=== PATIENT | female | born 2005 | race Caucasian/White ===

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

== ENCOUNTER 2023-03-04 00:19 | Emergency (ER) | payer OTHER, SELFPAY ==
--- NOTE | 2023-03-04 | ECG_ITS ---
Test Reason : CP Blood Pressure : / mmHG Vent. Rate : 089 BPM Atrial Rate : 089 BPM P-R Int : 126 ms QRS Dur : 076 ms QT Int : 340 ms P-R-T Axes : 070 069 025 degrees QTc Int : 413 ms Normal sinus rhythm with sinus arrhythmia Normal ECG No previous ECGs available Referred By: Generic ED Physician Electronically Signed By:SUGAR CARO MD
[2023-03-04 00:33] VITALS: BP 115/73; PULSE 106; RESP 18; TEMP 37.1; O2SAT 96; BMI 24.8
[2023-03-04 00:39] LABS: MANUAL DIFF FLAG NO
[2023-03-04 00:41] LABS: Basophils Percent Auto 0.4 % (0-2); Eosinophils Absolute Auto 0.5 X10*3/uL (0.0-0.4); Eosinophils Percent Auto 5.8 % (0-4); Hematocrit 38.4 % (37.0-47.0); Hemoglobin 13.2 g/dl (12.0-16.0); Imm Gran Abs Auto 0.02 X10*3/uL (0.00-0.03); Imm Gran Pct Auto 0.2 % (0.0-0.4); Lymphocytes Percent Auto 36.3 % (20-40); Mean Corpuscular HGB Conc 34.4 g/dl (31.0-35.0); Mean Corpuscular Volume 87.3 fL (80.0-98.0); Mean Platelet Volume 9.3 fL (9.4-12.3); Monocytes Absolute Auto 0.6 X10*3/uL (0.1-1.2); Monocytes Percent Auto 7.7 % (2-11); Neutrophils Absolute Auto 4.1 x10*3/uL (2.0-8.3); Neutrophils Percent Auto 49.6 % (45-73); Platelet Count 299 X10*3/uL (160-400); Red Cell Distribution Width 12.1 % (11.0-16.0); White Blood Count 8.3 X10*3/uL (4.8-10.8)
--- NOTE | 2023-03-04 00:52 | ED_ITS ---
HPI - Chest Pain General Chief Complaint: Chest Pain Stated Complaint: Chest Pain Time Seen by Provider: 03/04/23 00:51 Source: patient Mode of arrival: ambulatory Limitations: no limitations History of Present Illness HPI narrative: Patient no significant cardiac history in the past complaining of pain mid chest for last 1 week no palpitation no shortness of breath patient has similar pain few months ago no family history of sudden cardiac no history of blood no history of control pills no shortness of breath no diaphoresis no nausea no vomiting no trauma no cough Related Data Home Medications Medication Instructions Recorded Confirmed loratadine 10 mg tablet 10 mg PO DAILY 10/28/21 06/12/22 clindamycin phosphate 1 % topical topical 12/21/21 06/12/22 solution tretinoin 0.025 % topical cream appl topical BEDTIME 12/21/21 06/12/22 Previous Rx's Medication Instructions Recorded linaclotide 290 mcg capsule 290 mcg PO QAM 30 days #30 caps 09/16/21 (Linzess) acetaminophen 500 mg tablet 1,000 mg (2 x 500 mg) PO Q6H PRN 06/10/22 (Tylenol Extra Strength) pain 14 days #120 tabs ibuprofen 400 mg tablet 400 mg PO Q6H PRN pain #60 tabs 06/10/22 ibuprofen 600 mg tablet 600 mg PO Q6H PRN fever or pain 03/04/23 #30 tabs Allergies Allergy/AdvReac Type Severity Reaction Status Date / Time No Known Allergies Allergy Verified 06/12/22 13:29 Review of Systems 2 Review of Systems: Yes all other systems are reviewed and are negative PMFSH Past Medical History Medical History Hip pain, bilateral Chronic pain syndrome Osteoarthritis of knees, bilateral Ear infection Surgical History No pertinent past surgical history Family History Family History Father Fibromyalgia Cancer Nerve damage Depression Anxiety Social History Social History Housing: Apartment Alcohol intake: never Patient Tobacco Use Status: Never used Tobacco Smoked in Last 30 Days: No e-Cigarette/Vaping Use: Never Used Second Hand Smoke Exposure: Yes Use of substances other than those prescribed or required for medical reasons: No Advance Directives: No Advance Directives Information Provided: No Patient : No service: No Current occupational status: employed and student 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 Oriented X3. No acute distress. ENT: Pharynx normal. Oral Mucosa moist Neck: Normal inspection. Neck supple. CVS: Normal heart rate and rhythm. Pulses normal. Respiratory: No respiratory distress. Equal air entry bilateral, no wheezing/rales/rhonchi left 2nd intercostal pes tenderness Abdomen: Soft and nontender. Bowel sounds are present, Skin: Skin warm and dry. Normal skin color. Normal skin turgor. Extremities: No lower extremity edema. No calf tenderness Neuro: Oriented X 3. Medications Administered Discontinued Medications Generic Name Dose Route Start Last Admin Trade Name Johanna PRN Reason Stop Dose Admin Ibuprofen 600 mg 03/04/23 01:13 03/04/23 01:28 Ibuprofen 600 Mg Tablet PO 03/04/23 01:14 600 mg ONCE ONE Administration Medical Decision Making Medical Decision Making [facility] Narrative: . Patient with Atypical chest pain likely costochondritis patient patient home on ibuprofen heart score 0 Differential Diagnosis Differential Diagnoses: The differential diagnosis associated with the presentation includes Chest wall pain/PE/costochondritis/ACs Lab Data [facility] Lab Attestation statement: I reviewed the patient's lab results. 03/04/23 00:35 03/04/23 00:35 Labs: Lab Results 03/04/23 Range/Units 00:35 WBC 8.3 (4.8-10.8) X10*3/uL RBC 4.40 (4.20-5.50) X10*6/uL Hgb 13.2 (12.0-16.0) g/dl Hct 38.4 (37.0-47.0) % MCV 87.3 (80.0-98.0) fL MCH 30.0 (27.0-33.0) pg MCHC 34.4 (31.0-35.0) g/dl RDW 12.1 (11.0-16.0) % Plt Count 299 (160-400) X10*3/uL MPV 9.3 L (9.4-12.3) fL Immature Gran % (Auto) 0.2 (0.0-0.4) % Neut % (Auto) 49.6 (45-73) % Lymph % (Auto) 36.3 (20-40) % Merrick % (Auto) 7.7 (2-11) % Eos % (Auto) 5.8 H (0-4) % Baso % (Auto) 0.4 (0-2) % Lymph # (Auto) 3.0 (1.2-4.9) X10*3/uL Merrick # (Auto) 0.6 (0.1-1.2) X10*3/uL Eos # (Auto) 0.5 H (0.0-0.4) X10*3/uL Baso # (Auto) 0.0 (0.0-0.2) X10*3/uL Abs Immat Gran (auto) 0.02 (0.00-0.03) X10*3/uL Absolute Neuts (auto) 4.1 (2.0-8.3) x10*3/uL Absolute Nucleated RBC 0.000 (0.0-0.012) X10*3/uL Nucleated RBC % (auto) 0.0 (0.0-0.2) /100WBC Sodium 139 (135-145) mmol/L Potassium 3.4 (3.3-5.1) mmol/L Chloride 109 H (96-108) mmol/L Carbon Dioxide 22 (22-29) mmol/L Anion Gap 11 L (12-20) BUN 7 L (9-16) mg/dL Creatinine 0.79 (0.5-1.4) mg/dL Estim Creat Clear Calc 111.4 Estimated GFR > 60 Random Glucose 124 H (60-115) mg/dL Calcium 9.4 (8.4-10.2) mg/dL Total Bilirubin 0.3 (0.0-1.0) mg/dL Direct Bilirubin 0.1 (0.0-0.5) mg/dL AST 19 (5-31) U/L ALT 19 (0-31) U/L Alkaline Phosphatase 87 (39-117) U/L Troponin I High Sens < 2.7 (<3.5-17.0) ng/L Total Protein 7.5 (6.5-8.0) g/dL Albumin 4.3 (3.5-5.0) g/dL Lipase 22 (8-78) U/L Independent Interpretation I performed an independent interpretation of an: EKG Interpretation: Normal sinus rhythm heart rate 89 beats per minute normal interval normal axis no acute ST-T no acute ischemic Discharge Plan Discharge Clinical Impression: Costalchondritis Patient Disposition: Home, Self-Care Instructions: Costochondritis (ED) Additional Instructions: your chest pain is not from the heart is likely from inflammation the cartilage Take pain medications prescribed Prescriptions: New ibuprofen 600 mg tablet 600 mg PO Q6H PRN (Reason: fever or pain) Qty: 30 0RF No Action acetaminophen [Tylenol Extra Strength] 500 mg tablet 1,000 mg PO Q6H PRN (Reason: pain) 14 Days Qty: 120 0RF ibuprofen 400 mg tablet 400 mg PO Q6H PRN (Reason: pain) Qty: 60 0RF Linzess 290 mcg capsule 290 mcg PO QAM 30 Days Qty: 30 6RF loratadine 10 mg tablet 10 mg PO DAILY clindamycin phosphate 1 % solution topical tretinoin 0.025 % cream topical BEDTIME Stand Alone Forms: Work/School Release Interventions: ED Discharge Assessment Last Done: 03/04/23 01:32 Discharge Date/Time: 03/04/23 01:33
[2023-03-04 00:54] LABS: Alanine Aminotransferase 19 U/L (0-31); Albumin Level 4.3 g/dL (3.5-5.0); Alkaline Phosphatase 87 U/L (39-117); Anion Gap 11 (12-20); Aspartate Amino Transferase 19 U/L (5-31); Bilirubin Direct 0.1 mg/dL (0.0-0.5); Bilirubin Total 0.3 mg/dL (0.0-1.0); Blood Urea Nitrogen 7 mg/dL (9-16); Calcium 9.4 mg/dL (8.4-10.2); Carbon Dioxide 22 mmol/L (22-29); Chloride 109 mmol/L (96-108); Creatinine Clr Calc Pharmacy 111.4; Estimated Glomerular Filt Rate > 60; Glucose Random 124 mg/dL (60-115); Lipase 22 U/L (8-78); Potassium 3.4 mmol/L (3.3-5.1); Sodium 139 mmol/L (135-145); Total Protein 7.5 g/dL (6.5-8.0)
[2023-03-04 01:05] LABS: Troponin-I High Sensitivity < 2.7 ng/L (<3.5-17.0)
--- NOTE | 2023-03-04 01:17 | PC.NURSE ---
Pt ambulated into room with a steady gait, Pt reporting 5/10 sub-sternal chest pain, when lifting left arm pt experienced sharp pain which has resolved as of now. Pt reports resolved SOB. Pt denies lfting anything heavy, or any physical exertion. Pt denies an family medical history. Pt aware of plan.
[2023-03-04 01:26] VITALS: BP 116/75; PULSE 93; RESP 20; O2SAT 99
[2023-03-04] MEDS: Ibuprofen 600 MG TABLET PO (01:28)
== END 2023-03-04 01:33 | disposition home or self-care (01) ==
PROVIDERS: Emergency Provider Internal Medicine; PCP Internal Medicine
DX: R07.89 Other chest pain (principal); M94.0 Chondrocostal junction syndrome [Tietze]; Z79.899 Other long term (current) drug therapy
CPT/HCPCS: 36415; 80048; 80076; 83690; 84484; 85025; 93005; 99284; 99285

== ENCOUNTER 2023-03-29 22:45 | Emergency (ER) | payer OTHER, SELFPAY ==
[2023-03-29 23:05] VITALS: BP 117/84; PULSE 94; RESP 16; TEMP 36.6; O2SAT 100; BMI 33.7
[2023-03-29 23:39] LABS: UPreg QC Valid YES; Urine Pregnancy NEGATIVE (NEGATIVE)
--- NOTE | 2023-03-30 00:19 | MHC.EDTECH ---
Patient blood drawn and sent to lab .
[2023-03-30 00:23] LABS: Basophils Percent Auto 0.4 % (0-2); Eosinophils Absolute Auto 0.3 X10*3/uL (0.0-0.4); Eosinophils Percent Auto 3.5 % (0-4); Hematocrit 37.7 % (37.0-47.0); Hemoglobin 12.8 g/dl (12.0-16.0); Imm Gran Abs Auto 0.02 X10*3/uL (0.00-0.03); Imm Gran Pct Auto 0.2 % (0.0-0.4); Lymphocytes Absolute Auto 3.2 X10*3/uL (1.2-4.9); Lymphocytes Percent Auto 37.5 % (20-40); MANUAL DIFF FLAG NO; Mean Corpuscular Hemoglobin 29.8 pg (27.0-33.0); Mean Corpuscular Volume 87.9 fL (80.0-98.0); Mean Platelet Volume 9.8 fL (9.4-12.3); Monocytes Absolute Auto 0.6 X10*3/uL (0.1-1.2); Monocytes Percent Auto 6.8 % (2-11); Neutrophils Absolute Auto 4.4 x10*3/uL (2.0-8.3); Neutrophils Percent Auto 51.6 % (45-73); Platelet Count 298 X10*3/uL (160-400); Red Blood Count 4.29 X10*6/uL (4.20-5.50); Red Cell Distribution Width 11.9 % (11.0-16.0); White Blood Count 8.5 X10*3/uL (4.8-10.8)
[2023-03-30 00:26] LABS: Appearance Urine Clear; Color Urine Yellow; Glucose Urine UA Negative (Negative); Leukocyte Esterase Urine Negative (Negative); Nitrite Urine Negative (Negative); UMIC TRIGGER UACC YES; Urine Blood Trace (Negative); Urine Ketones Negative (Negative); Urine Protein Negative (Neg-Trace)
[2023-03-30 00:28] LABS: Bacteria Urine None Seen (None Seen); Hyaline Casts Urine 0-2 /LPF (0-2); Squamous Epithelial Cell Urine 0-2 /HPF (0-2); WBC Urine 0-5 /HPF (0-5)
[2023-03-30 00:37] LABS: Anion Gap 12 (12-20); Blood Urea Nitrogen 14 mg/dL (9-16); Calcium 9.4 mg/dL (8.4-10.2); Carbon Dioxide 25 mmol/L (22-29); Chloride 108 mmol/L (96-108); Creatinine Clr Calc Pharmacy 100.6; Estimated Glomerular Filt Rate > 60; Glucose Random 97 mg/dL (60-115); Potassium 4.9 mmol/L (3.3-5.1); Sodium 140 mmol/L (135-145)
--- NOTE | 2023-03-30 00:40 | ED.FEMALEGU ---
HPI - Female Genitourinary General Chief complaint: Vaginal Bleeding Stated complaint: personal Time Seen by Provider: 03/29/23 23:40 Source: patient Mode of arrival: ambulatory Limitations: no limitations History of Present Illness HPI Narrative: Patient is a 18-year-old female who presents emergency department for evaluation of vaginal bleeding. She reports onset of vaginal bleeding 03/09/2023-until 03/23/2023. Typically her menstrual cycle last 5 days. She states that in February she missed her menstrual cycle, prior to that she had a normal cycle in January. She denies possibility of , reporting abstinence from November, to mid February which is when she should have had her menstrual cycle. For the past 6 days she did not have any bleeding. Tonight she noticed a small quarter-sized amount of dark red blood on her urine which prompted her a concern when she came to the emergency department. She denies fevers, chills, abdominal pain, rectal bleeding, blood in her urine, pelvic pain, pain with intercourse, concern for sexually transmitted infections. Related Data Home Medications Medication Instructions Recorded Confirmed loratadine 10 mg tablet 10 mg PO DAILY 10/28/21 06/12/22 clindamycin phosphate 1 % topical topical 12/21/21 06/12/22 solution tretinoin 0.025 % topical cream appl topical BEDTIME 12/21/21 06/12/22 Previous Rx's Medication Instructions Recorded linaclotide 290 mcg capsule 290 mcg PO QAM 30 days #30 caps 09/16/21 (Linzess) acetaminophen 500 mg tablet 1,000 mg (2 x 500 mg) PO Q6H PRN 06/10/22 (Tylenol Extra Strength) pain 14 days #120 tabs ibuprofen 400 mg tablet 400 mg PO Q6H PRN pain #60 tabs 06/10/22 ibuprofen 600 mg tablet 600 mg PO Q6H PRN fever or pain 03/04/23 #30 tabs Allergies Allergy/AdvReac Type Severity Reaction Status Date / Time No Known Allergies Allergy Verified 06/12/22 13:29 Review of Systems Review of Systems: Yes all other systems are reviewed and are negative [facility] Past Medical History Attestation statement: The following information was validated with the patient. 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 No acute distress.?Normal affect. Eyes: Pupils equal, round and reactive to light.? ENT: Pharynx normal.?? Neck: Normal inspection.? Neck supple.?? CVS: Heart sounds normal. Normal heart rate and rhythm.? Pulses normal.?? Respiratory: No respiratory distress.? Lung sounds clear to auscultation bilaterally?? Abdomen: Soft and non-tender. Normoactive bowel sounds. No CVA tenderness Skin: Skin warm and dry.? Normal skin color.?? Extremities: No lower extremity edema.? Neuro: Moves all extremities spontaneously. Sensation intact bilaterally. Ambulates with normal steady gait. Medical Decision Making Medical Decision Making MDM Narrative: Patient is a 18-year-old female who presents emergency department for evaluation of vaginal bleeding as per HPI. She has not experienced bleeding for the past 6 days aside from a small quarter-sized amount today noted on her undergarments. Abdominal examination is benign. She was offered to have internal pelvic examination she however declines. She denies concern for sexually transmitted infections and declines testing for such. Reviewed labs obtained, CBC is without leukocytosis or anemia, no thrombocytopenia. Electrolytes are normal, no ADDIE. Urinalysis revealing trace evidence of blood, consistent vaginal bleeding, no evidence of urinary tract infection. testing is negative. At this time she is stable for discharge, discussed outpatient follow-up with photogrammetric technician regarding irregular menstrual bleeding, worrisome signs and symptoms that would warrant re-evaluation emergency department. All questions answered. Stable for discharge. Differential Diagnosis Differential Diagnoses: The differential diagnosis associated with the presentation includes (As noted above) Lab Data MDM Lab Attestation statement: I reviewed the patient's lab results. (As noted above) 03/30/23 00:18 03/30/23 00:18 Labs: Lab Results 03/29/23 03/30/23 Range/Units 23: 00:18 WBC 8.5 (4.8-10.8) X10*3/uL RBC 4.29 (4.20-5.50) X10*6/uL Hgb 12.8 (12.0-16.0) g/dl Hct 37.7 (37.0-47.0) % MCV 87.9 (80.0-98.0) fL MCH 29.8 (27.0-33.0) pg MCHC 34.0 (31.0-35.0) g/dl RDW 11.9 (11.0-16.0) % Plt Count 298 (160-400) X10*3/uL MPV 9.8 (9.4-12.3) fL Immature Gran % (Auto) 0.2 (0.0-0.4) % Neut % (Auto) 51.6 (45-73) % Lymph % (Auto) 37.5 (20-40) % [place] % (Auto) 6.8 (2-11) % Eos % (Auto) 3.5 (0-4) % Baso % (Auto) 0.4 (0-2) % Lymph # (Auto) 3.2 (1.2-4.9) X10*3/uL [place] # (Auto) 0.6 (0.1-1.2) X10*3/uL Eos # (Auto) 0.3 (0.0-0.4) X10*3/uL Baso # (Auto) 0.0 (0.0-0.2) X10*3/uL Abs Immat Gran (auto) 0.02 (0.00-0.03) X10*3/uL Absolute Neuts (auto) 4.4 (2.0-8.3) x10*3/uL Absolute Nucleated RBC 0.000 (0.0-0.012) X10*3/uL Nucleated RBC % (auto) 0.0 (0.0-0.2) /100WBC Sodium 140 (135-145) mmol/L Potassium 4.9 D (3.3-5.1) mmol/L Chloride 108 (96-108) mmol/L Carbon Dioxide 25 (22-29) mmol/L Anion Gap 12 (12-20) BUN 14 (9-16) mg/dL Creatinine 1.07 (0.5-1.4) mg/dL Estim Creat Clear Calc 100.6 Estimated GFR > 60 Random Glucose 97 (60-115) mg/dL Calcium 9.4 (8.4-10.2) mg/dL Urine Color Yellow Urine Appearance Clear Urine pH 7.0 (5.0-9.0) Ur Specific [place] 1.020 (1.005-1.025) Urine Protein Negative (Neg-Trace) mg/dL Urine Glucose (UA) Negative (Negative) mg/dL Urine Ketones Negative (Negative) mg/dL Urine Blood Trace H (Negative) Urine Nitrite Negative (Negative) Ur Leukocyte Esterase Negative (Negative) Urine RBC 3-5 H (0-2) /HPF Urine WBC 0-5 (0-5) /HPF Ur Squamous Epith Cells 0-2 (0-2) /HPF Urine Bacteria None Seen (None Seen) Hyaline Casts 0-2 (0-2) /LPF Urine Test NEGATIVE (NEGATIVE) Independent Historian Clinical information obtained from an independent historian. History obtained from or confirmed by: Other (Boyfriend present at bedside who confirms history) External Record Review External record reviewed: Outpatient record Discharge Plan Discharge Clinical Impression: Irregular uterine bleeding Patient Disposition: Home, Self-Care Instructions: Dysfunctional Uterine Bleeding (ED) Additional Instructions: As discussed, please contact the photogrammetric technician office to arrange for a follow-up visit. Her blood counts today were normal. As discussed, please keep a diary of your menstrual cycle/bleeding, keeping track of the days that it occurs, in addition to the number of pads to using daily and how saturated they are. You may return back to emergency department any new or worsening symptoms or concerns. Prescriptions: No Action acetaminophen [Tylenol Extra Strength] 500 mg tablet 1,000 mg PO Q6H PRN (Reason: pain) 14 Days Qty: 120 0RF ibuprofen 400 mg tablet 400 mg PO Q6H PRN (Reason: pain) Qty: 60 0RF ibuprofen 600 mg tablet 600 mg PO Q6H PRN (Reason: fever or pain) Qty: 30 0RF Linzess 290 mcg capsule 290 mcg PO QAM 30 Days Qty: 30 6RF loratadine 10 mg tablet 10 mg PO DAILY clindamycin phosphate 1 % solution topical tretinoin 0.025 % cream topical BEDTIME Referrals: Lea Portillo MD [Primary Care Provider] - Jayme Crook MD [Physician] -
[2023-03-30 01:23] VITALS: BP 107/69; PULSE 94; RESP 16; TEMP 36.3; O2SAT 98
== END 2023-03-30 01:25 | disposition home or self-care (01) ==
PROVIDERS: Nurse Practitioner Family; Emergency Provider Internal Medicine; PCP Internal Medicine
DX: N93.9 Abnormal uterine and vaginal bleeding, unspecified (principal)
CPT/HCPCS: 36415; 80048; 81001; 81025; 85025; 99283; 99284

== ENCOUNTER 2023-04-14 20:29 | Emergency (ER) | payer OTHER, SELFPAY ==
[2023-04-14 20:47] VITALS: BP 127/78; PULSE 74; RESP 14; TEMP 36.4; O2SAT 99; BMI 25.2
--- NOTE | 2023-04-14 22:20 | PC.NURSE ---
pt from home reporting right lower abdominal pain for 3 days. pt denies n/v/d. pt reports the pain worsens with movement but states the pain is minimal at rest. pt reports being placed on antibiotics for strep throat and reports she is unsure if this is causing the symptoms. pt abdomen soft non tender to touch and noted to have active bowel sounds in all 4 quadrants.
--- NOTE | 2023-04-14 22:22 | ED.ABDPAIN ---
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 Has not been associated with fever, chills, nausea, vomiting, patient does report burning on urination and LMP 03/30. Related Data Home Medications Medication Instructions Recorded Confirmed loratadine 10 mg tablet 10 mg PO DAILY 10/28/21 06/12/22 clindamycin phosphate 1 % topical topical 12/21/21 06/12/22 solution tretinoin 0.025 % topical cream appl topical BEDTIME 12/21/21 06/12/22 Previous Rx's Medication Instructions Recorded linaclotide 290 mcg capsule 290 mcg PO QAM 30 days #30 caps 09/16/21 (Linzess) acetaminophen 500 mg tablet 1,000 mg (2 x 500 mg) PO Q6H PRN 06/10/22 (Tylenol Extra Strength) pain 14 days #120 tabs ibuprofen 400 mg tablet 400 mg PO Q6H PRN pain #60 tabs 06/10/22 ibuprofen 600 mg tablet 600 mg PO Q6H PRN fever or pain 03/04/23 #30 tabs Allergies Allergy/AdvReac Type Severity Reaction Status Date / Time No Known Allergies Allergy Verified 06/12/22 13:29 Review of Systems Review of Systems Pertinent positives and negatives as stated in HPI PMFSH Past Medical History Source: nursing notes reviewed Medical History Hip pain, bilateral Chronic pain syndrome Osteoarthritis of knees, bilateral Ear infection Surgical History No pertinent past surgical history Family History Family History Father Fibromyalgia Cancer Nerve damage Depression Anxiety Social History Social History Housing: Apartment Alcohol intake: never Patient Tobacco Use Status: Never used Tobacco Smoked in Last 30 Days: No e-Cigarette/Vaping Use: Never Used Second Hand Smoke Exposure: Yes Use of substances other than those prescribed or required for medical reasons: No Advance Directives: No Advance Directives Information Provided: No Patient : No service: No Current occupational status: employed and student 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 GENERAL: Well developed, well nourished, in no acute distress. HEAD: Normocephalic/atraumatic EYES: PERRLA, EOMI EARS: Ext canals without abnormality NOSE: Nares patent bilateral OROPHARYNX: no oral lesions noted, posterior pharynx clear NECK: Supple, no adenopathy LUNGS: Normal breath sounds. No adventitious sounds or accessory muscle use. SpO2<99> CARDIOVASCULAR: Regular rate and rhythm without noted murmurs ABDOMEN: Soft, mild pain to right lower quadrant without rebound, non-distended with bowel sounds. MUSCULOSKELETAL: No tenderness, deformities, or effusions noted on gross inspection. EXTREMITIES: No cyanosis, clubbing or edema. SKIN: Inspection of the skin reveals no rashes NEUROLOGIC: Alert and oriented x 4. Strength and sensation to light touch were grossly intact x 4. Medical Decision Making Medical Decision Making MDM Narrative: 18-year-old female with history and clinical presentation, DDX: Musculoskeletal, UTI, low clinical suspicion for intra-abdominal infection such as appendicitis, will rule out ectopic. I reviewed all investigations and hematologic indices are negative for leukocytosis or left shift, patient is also noted to be afebrile and no clinical suspicion once again for intra-abdominal infection given that patient has been experiencing this pain for the past 3 days. Otherwise, there is no anemia or thrombocytopenia. Chemistry and disease are grossly within normal limits without demonstration of ADDIE her electrolytes/liver enzyme derangements. Urinalysis is negative for UTI and urine is negative ruling out the possibility of ectopic at this time. Due to the timing no clinical suspicion for torsion either. My interpretation is that patient is experiencing musculoskeletal pain, she was offered combination analgesics Tylenol and ibuprofen will otherwise be discharged home with instructions to follow this regimen. Differential Diagnosis Differential Diagnoses: The differential diagnosis associated with the presentation includes Please see the discussion above Admission/Observation Consideration of admission/observation: Escalation of care including admission/observation considered Please see the discussion above Lab Data MDM Lab Attestation statement: I reviewed the patient's lab results. Please see the discussion above 04/14/23 22:21 04/14/23 22:21 Labs: Lab Results 04/14/23 04/14/23 Range/Units 22:11 22:21 WBC 8.3 (4.8-10.8) X10*3/uL RBC 4.23 (4.20-5.50) X10*6/uL Hgb 12.7 (12.0-16.0) g/dl Hct 36.9 L (37.0-47.0) % MCV 87.2 (80.0-98.0) fL MCH 30.0 (27.0-33.0) pg MCHC 34.4 (31.0-35.0) g/dl RDW 11.7 (11.0-16.0) % Plt Count 275 (160-400) X10*3/uL MPV 9.2 L (9.4-12.3) fL Immature Gran % (Auto) 0.4 (0.0-0.4) % Neut % (Auto) 45.7 (45-73) % Lymph % (Auto) 42.7 H (20-40) % [place] % (Auto) 7.4 (2-11) % Eos % (Auto) 3.4 (0-4) % Baso % (Auto) 0.4 (0-2) % Lymph # (Auto) 3.5 (1.2-4.9) X10*3/uL [place] # (Auto) 0.6 (0.1-1.2) X10*3/uL Eos # (Auto) 0.3 (0.0-0.4) X10*3/uL Baso # (Auto) 0.0 (0.0-0.2) X10*3/uL Abs Immat Gran (auto) 0.03 (0.00-0.03) X10*3/uL Absolute Neuts (auto) 3.8 (2.0-8.3) x10*3/uL Absolute Nucleated RBC 0.000 (0.0-0.012) X10*3/uL Nucleated RBC % (auto) 0.0 (0.0-0.2) /100WBC Sodium 140 (135-145) mmol/L Potassium 4.4 (3.3-5.1) mmol/L Chloride 107 (96-108) mmol/L Carbon Dioxide 26 (22-29) mmol/L Anion Gap 11 L (12-20) BUN 10 (9-16) mg/dL Creatinine 0.72 (0.5-1.4) mg/dL Estim Creat Clear Calc 121.1 Estimated GFR > 60 Random Glucose 97 (60-115) mg/dL Calcium 9.2 (8.4-10.2) mg/dL Total Bilirubin 0.2 (0.0-1.0) mg/dL Direct Bilirubin < 0.2 (0.0-0.5) mg/dL AST 18 (5-31) U/L ALT 16 (0-31) U/L Alkaline Phosphatase 93 (39-117) U/L Total Protein 7.4 (6.5-8.0) g/dL Albumin 4.2 (3.5-5.0) g/dL Lipase 23 (8-78) U/L Urine Color Yellow Urine Appearance Clear Urine pH 7.0 (5.0-9.0) Ur Specific [place] 1.010 (1.005-1.025) Urine Protein Negative (Neg-Trace) mg/dL Urine Glucose (UA) Negative (Negative) mg/dL Urine Ketones Negative (Negative) mg/dL Urine Blood Negative (Negative) Urine Nitrite Negative (Negative) Ur Leukocyte Esterase Negative (Negative) Urine Test NEGATIVE (NEGATIVE) External Record Review External record reviewed: Office record, Outpatient record, Prior outpatient labs and Prior outpatient radiology Medications Administered Discontinued Medications Generic Name Dose Route Start Last Admin Trade Name Freq PRN Reason Stop Dose Admin Acetaminophen 975 mg 04/14/23 22:34 04/14/23 22:44 Acetaminophen 325 Mg Tablet PO 04/14/23 22:35 975 mg ONCE ONE Administration Ibuprofen 400 mg 04/14/23 22:34 04/14/23 22:44 Ibuprofen 400 Mg Tablet PO 04/14/23 22:35 400 mg ONCE ONE Administration Discharge Plan Discharge Clinical Impression: Abdominal discomfort, Musculoskeletal pain Patient Disposition: Home, Self-Care Instructions: Musculoskeletal Pain (ED) Additional Instructions: 1. Tylenol 1000 mg, orally, every 6 hours as needed for pain control. Do not exceed 4000 mg within 24 hours. 2. Ibuprofen 400 mg, orally with milk or food, every 6 hours as needed for pain control. 3. Recommend heating pad for additional symptom relief. As this is most likely musculoskeletal in nature. 4. Follow-up with your primary care provider in the next 1-2 days. Return to the ER for any worsening symptoms. Prescriptions: No Action acetaminophen [Tylenol Extra Strength] 500 mg tablet 1,000 mg PO Q6H PRN (Reason: pain) 14 Days Qty: 120 0RF ibuprofen 400 mg tablet 400 mg PO Q6H PRN (Reason: pain) Qty: 60 0RF ibuprofen 600 mg tablet 600 mg PO Q6H PRN (Reason: fever or pain) Qty: 30 0RF Linzess 290 mcg capsule 290 mcg PO QAM 30 Days Qty: 30 6RF loratadine 10 mg tablet 10 mg PO DAILY clindamycin phosphate 1 % solution topical tretinoin 0.025 % cream topical BEDTIME Referrals: Lea Portillo MD [Primary Care Provider] -
[2023-04-14 22:26] LABS: Appearance Urine Clear; Color Urine Yellow; Glucose Urine UA Negative (Negative); Leukocyte Esterase Urine Negative (Negative); Nitrite Urine Negative (Negative); Urine Blood Negative (Negative); Urine Ketones Negative (Negative); Urine Protein Negative (Neg-Trace)
[2023-04-14 22:28] LABS: MANUAL DIFF FLAG NO
[2023-04-14 22:29] LABS: Basophils Percent Auto 0.4 % (0-2); Eosinophils Absolute Auto 0.3 X10*3/uL (0.0-0.4); Eosinophils Percent Auto 3.4 % (0-4); Hematocrit 36.9 % (37.0-47.0); Hemoglobin 12.7 g/dl (12.0-16.0); Imm Gran Abs Auto 0.03 X10*3/uL (0.00-0.03); Imm Gran Pct Auto 0.4 % (0.0-0.4); Lymphocytes Absolute Auto 3.5 X10*3/uL (1.2-4.9); Lymphocytes Percent Auto 42.7 % (20-40); Mean Corpuscular HGB Conc 34.4 g/dl (31.0-35.0); Mean Corpuscular Volume 87.2 fL (80.0-98.0); Mean Platelet Volume 9.2 fL (9.4-12.3); Monocytes Absolute Auto 0.6 X10*3/uL (0.1-1.2); Monocytes Percent Auto 7.4 % (2-11); Neutrophils Absolute Auto 3.8 x10*3/uL (2.0-8.3); Neutrophils Percent Auto 45.7 % (45-73); Platelet Count 275 X10*3/uL (160-400); Red Blood Count 4.23 X10*6/uL (4.20-5.50); Red Cell Distribution Width 11.7 % (11.0-16.0); White Blood Count 8.3 X10*3/uL (4.8-10.8)
[2023-04-14 22:30] LABS: UPreg QC Valid YES; Urine Pregnancy NEGATIVE (NEGATIVE)
[2023-04-14 22:44] LABS: Alanine Aminotransferase 16 U/L (0-31); Albumin Level 4.2 g/dL (3.5-5.0); Alkaline Phosphatase 93 U/L (39-117); Anion Gap 11 (12-20); Aspartate Amino Transferase 18 U/L (5-31); Bilirubin Direct < 0.2 mg/dL (0.0-0.5); Bilirubin Total 0.2 mg/dL (0.0-1.0); Blood Urea Nitrogen 10 mg/dL (9-16); Calcium 9.2 mg/dL (8.4-10.2); Carbon Dioxide 26 mmol/L (22-29); Chloride 107 mmol/L (96-108); Creatinine Clr Calc Pharmacy 121.1; Estimated Glomerular Filt Rate > 60; Glucose Random 97 mg/dL (60-115); Lipase 23 U/L (8-78); Potassium 4.4 mmol/L (3.3-5.1); Sodium 140 mmol/L (135-145); Total Protein 7.4 g/dL (6.5-8.0)
[2023-04-14] MEDS: Acetaminophen 325 MG TABLET 975 MG PO (22:44)
[2023-04-14] MEDS: Ibuprofen 400 MG TABLET PO (22:44)
--- NOTE | 2023-04-14 22:45 | PC.NURSE ---
pt medicated per jul for 09/13 abd pain
[2023-04-14 23:12] VITALS: BP 118/79; PULSE 80; RESP 16; O2SAT 98
== END 2023-04-14 23:13 | disposition home or self-care (01) ==
PROVIDERS: Emergency Provider Student in an Organized Health Care Education/Training Program; PCP Internal Medicine
DX: R10.9 Unspecified abdominal pain (principal); M79.18 Myalgia, other site
CPT/HCPCS: 36415; 80048; 80076; 81003; 81025; 83690; 85025; 99283; 99284

== ENCOUNTER 2023-09-11 14:41 | Outpatient (AMB) | payer OTHER, SELFPAY ==
[2023-09-11 14:55] VITALS: BP 112/60; BMI 25.8
--- NOTE | 2023-09-11 14:55 | A.OFFVIS_ITS ---
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 [employer] Present Allergies No Known Allergies Allergy (Verified 09/11/23 14:55) Medication List - Last Reconciled 09/11/23 by Jennifer Fournier CNM acetaminophen (Tylenol Extra Strength) 1,000 mg (2 x 500 mg) PO Q6H PRN 14 days clindamycin phosphate 1% topical ibuprofen 400 mg PO Q6H PRN ibuprofen 600 mg PO Q6H PRN linaclotide (Linzess) 290 mcg PO QAM 30 days loratadine 10 mg PO DAILY tretinoin 0.025% appl topical BEDTIME Is last menstrual period known: Yes Last menstrual period: 09/10/23 Do you need a note to return to daycare/school/sports/work: No HPI HPI discuss treatment: Details: Patient is here as follow-up from [facility] emergency room visit she would gone there 2 weeks ago with pain and she was having irregular bleeding often on with abnormal periods since March. The March period Was late. She had been on Depo-Provera in the past but stopped it because she was not sexually active at the time and did not like how it made her feel which was bloated. She has since become sexually active and has not been contraceptive thing she would not like to have a baby right now she is just moved back from [place] and that was just for a few months and she has had changes of insurance and difficulty getting in for appointments and care. She has not been able to see her primary care provider. She lives with her boyfriend. She says she has not had sex for the last month because it her when she had sex. She said they checked her at [facility] for gonorrhea and chlamydia and said there everything was fine. 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 She used to get migraines when she was a kid but they did something with electric wires and the migraines went away and she has not had them for years. She has some issue with her joints and her knees so sometimes she takes ibuprofen for them but she does not take any medication on a regular basis. [facility] Medical History Hip pain, bilateral Chronic pain syndrome Osteoarthritis of knees, bilateral Ear infection Surgical History No pertinent past surgical history Family History Father Fibromyalgia Cancer Nerve damage Depression Anxiety Social History Housing: Apartment Alcohol intake: never Patient Tobacco Use Status: Never used Tobacco e-Cigarette/Vaping Use: Never Used Second Hand Smoke Exposure: Yes service: No Current occupational status: employed and student Current occupation: [employer] & works at [employer] Current occupational exposures/hazards: No Cognitive needs: No Hearing needs: No Vision needs: No Female Reproductive History Menstrual Age of Menarche: 10 Duration of menses: other Date of last menstrual period: 09/10/23 control method: none Total pregnancies: 0 Physical Exam Vital Signs: Last Vital Signs BP 112/60 09/11/23 14:55 BMI result Body Mass Index 25.8 Results AMB Test Urine AMB Test Urine Negative Last Edit by Billy Tinsley CMA on 09/11/23 15:45 Results Reviewed Results Reviewed: preg test today= [facility] emergency notes from 08/30/23 showing 4.4 cm left ovarian hemorhagic cyst, patient was given referral to follow-up at [facility] but called and could not get through so she had been seen here before so she called here. Assessment & Plan Assessment & Plan (1) Ovarian cyst: Comment: 4.4 cm, dx at [facility] er 08/30/23 Code(s): N83.209 - Unspecified ovarian cyst, unspecified side Category: Medical (2) Counseling for initiation of control method: Code(s): Z30.09 - Encounter for other general counseling and advice on contraception Category: Medical Plan Review the notes from [facility] emergency room and try to ascertain when this appointment got made and how she ended up here. Discussed her history with Depo-Provera and why she decided to stop it (she was not sexually active at the time and did not like how it made her feel either) discussed that now that she is sexually active she needs to ask herself whether not she would be ready to be and have a baby or not she told me that the answer was no. Reviewed that in that case her option would be either to not have sex or use something to help her not get when she does have sex. discussed condoms for safer sex as well. Discussed the the most common option for dealing with ovarian cysts is to start young women on control pills because it helps regulate the hormonal feedback system that is involved in the menstrual cycle and therefore can help prevent ovarian cyst discussed that Depo-Provera is also another option however long-term it may not be the best option. Discussed danger signs involved with control pills discussed her past experience with the Depo. Discussed any concerns she has about going on pills or anything else. She was tested August 29 at the emergency room for STDs and has not been sexually active since since she is bleeding often on although it be dark and unusual not like. This would be a good time to start on the pills and she could start them today or tomorrow I do her picture about pill packs and how to take the pill regularly 1 pill every single day and progressed through the pill pack and reminded her to use the date sticker. She thinks that she would take pill 1st thing in the morning either before she goes to work or while driving to work. Reviewed that it might be a good idea to repeat the ultrasound in the future to see if the cyst resolves however can talk about that at a future visit. Discussed that her 1st Pap smear will be due when she is 19 years old and she may how so have pelvic exam at any time that she is concerned about STIs. We will see her in 3 months to see how she is doing discussed as best I was able to how control pills can help minimize the fluctuations in the menstrual cycle in therefore help prevent cysts. rtc 3 months. Orders: Orders AMB HCG Urine Test Today Z32.02 - Encounter for test, result negative Medications: New desog-e.estradiol/e.estradiol 0.15-0.02 mgx21 /0.01 mg x 5 1 tab PO DAILY 84 tabs 4RF Coding Level of Care Code Est Pt Level 3 (60642) Diagnoses Ovarian cyst N83.209 Counseling for initiation of control method Z30.09
== END 2023-09-11 15:50 | disposition home or self-care (01) ==
PROVIDERS: PCP Internal Medicine; Visit Provider Advanced Practice Midwife
DX: N83.209 Unspecified ovarian cyst, unspecified side (principal); Z30.09 Encounter for other general counseling and advice on contraception; Z32.02 Encounter for pregnancy test, result negative
CPT/HCPCS: 99213

== ENCOUNTER → 2023-09-11 14:41 | Outpatient (BNVA) | payer OTHER, SELFPAY | PROVIDERS: PCP Internal Medicine; Visit Provider Advanced Practice Midwife | DX: Z30.09 Encounter for other general counseling and advice on contraception (principal); N83.202 Unspecified ovarian cyst, left side | CPT/HCPCS: 81025; 99212 ==

== ENCOUNTER 2023-09-14 15:23 | Outpatient (AMB) | payer OTHER, SELFPAY ==
[2023-09-14 15:24] VITALS: BP 114/72; PULSE 75; BMI 25.0
--- NOTE | 2023-09-14 15:24 | MHC.OFFVIS ---
Vital Signs 09/14/23 15:24 Height 5 ft 7 in Weight 159 lb 9.835 oz BMI 25.0 BP 114/72 Blood Pressure Location Rt brachial Position Sitting Pulse 75 Intake Visit Reasons: f/u constipation Intake Note: Angelica presents to in office visit today in follow up of constipation. CC: Patient states that she came back recently from [place] and she is getting her doctor appointments together. Patient states that medications she had are now but one of her providers was able to prescribe the Linzess 290 mcg. Per patient since she was for too long without taking it she feels is too strong and would like to get the next lower dose of Linzess instead. She states I was having acid reflux and she took her dad's Omeprazole and is now resolved. Buffing Turner And Counter Required: No Accompanied by: Self / Same As Patient Allergies No Known Allergies Allergy (Verified 09/14/23 15:32) HPI HPI f/u constipation: Details: Assessment & Plan (1) Chronic constipation: ?Code(s): K59.09 - Other constipation ?Plan: She is doing well taking 2 senna with the LInzess. She has up to 4 in 24 hrs if she has breakthrough, and I educate her that depending on her hydration status and what she is eating her diet she may occasionally need to use some extra.? She is able to repeat verbalize understanding. ROV 6 mos. She is going to school for biology, [employer] in fall. TODAY'S VISIT She has been lost to folllow up since 2021! She is finding the Linzess 290 is too strong for her. Will go to 72mcg and if not strong enough she can double until she sees me. SHe was just dx'ed with and ovarian cyst and this was causing her abd pain. ROV 3 weeks. 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 [employer] Current occupational exposures/hazards: No Cognitive needs: No Hearing needs: No Vision needs: No Female Reproductive History Menstrual Age of Menarche: 10 Review of Systems Const Denies fatigue, Denies fever(s), Denies night sweats, Denies poor appetite and Denies weight loss ENT Reports Normal hearing present, Denies dental pain, Denies dysphagia, Denies hearing loss, Denies mouth pain, Denies odynophagia, Denies throat swelling, Denies tongue swelling and Reports other (Dentition adequate) Card Reports no additional complaints Resp Reports no additional complaints GI Details: Denies abdominal pain, Denies melena, Denies bloating, Denies hematochezia, Reports constipation, Reports GI cramping, Denies dysphagia, Denies excessive flatus, Denies early satiety, Denies heartburn, Denies diarrhea, Denies nausea, Denies odynophagia, Denies vomiting and Denies hematemesis Skin/Breast Denies pruritus, Denies lesions, Denies rash and Denies jaundice Neuro Reports Normal hearing present and Denies Abnormal speech present Endo Denies fatigue Aller/Immun Denies throat swelling and Denies tongue swelling Physical Exam Vital Signs: Last Vital Signs Pulse 75 09/14/23 15:24 BP 114/72 09/14/23 15:24 BMI result Body Mass Index 25.0 Const General: cooperative, no acute distress, well developed and well groomed Nutritional Appearance: average body habitus and well nourished Orientation/consciousness: oriented to person, oriented to place and oriented to time Limitations: No language barrier HEENT Head: Yes normocephalic and Yes atraumatic Eyes General: appearance normal, both eyes and all related structures Pupils: Equal, round and reactive pupils present Neck Neck: Yes normal visual inspection and Yes no lymphadenopathy Thyroid: Thyroid normal Resp Effort & Inspection: normal respiratory effort and able to speak in complete sentences Auscultation: clear to auscultation bilaterally Cardio Rate: regular rate Rhythm: regular rhythm Heart sounds: Normal, physiologic split S2 sound present Peripheral pulses: radial pulses present and posterior tibial pulses present GI Inspection: No distended and No Abdominal panniculus present Palpation (GI): Soft to palpation, nontender, no guarding, not rigid and No hepatosplenomegaly present Percussion: Yes normal to percussion Auscultation: normal bowel sounds Rectal Exam - Female: deferred Skin General skin exam: no rashes or lesions noted, turgor normal, skin not dry, no jaundice, No spider nevi and no striae Rashes: no rashes Nails: normal Neuro General: oriented to person, oriented to place and oriented to time Cranial nerves: Yes Equal, round and reactive pupils present and Yes Normal hearing present Speech: No Abnormal speech present Extrem General: Yes normal to inspection, No clubbing, No cyanosis and No edema Psych Appearance: grossly normal and well kempt Mental Status: mental status grossly normal Speech and movement: Normal speech and movement present Affect: normal affect Attitude: cooperative Thought process: Normal thought process present and not confabulating Thought content: Normal thought content present Insight: Fair insight present (Psych) Judgement: Fair judgement present (Psych) Assessment & Plan Assessment & Plan (1) Chronic constipation: Code(s): K59.09 - Other constipation Category: Medical Plan [facility] She is finding the Linzess 290 is too strong for her. Will go to 72mcg and if not strong enough she can double until she sees me. SHe was just dx'ed with and ovarian cyst and this was causing her abd pain. ROV 3 weeks. Medications: New linaclotide (Linzess) 72 mcg PO QAM 30 caps 6RF K59.09 - Other constipation Discontinued linaclotide Discontinued Reason: Doctor's Order 290 mcg PO QAM 30 days 30 caps 6RF K59.09 - Other constipation Coding Level of Care Code Est Pt Level 3 (31880) Diagnoses Chronic constipation K59.09
== END 2023-09-14 15:51 | disposition home or self-care (01) ==
PROVIDERS: PCP Internal Medicine; Visit Provider Nurse Practitioner
DX: K59.09 Other constipation (principal)
CPT/HCPCS: 99213

== ENCOUNTER → 2023-09-14 15:23 | Outpatient (BNVA) | payer OTHER, SELFPAY | PROVIDERS: PCP Internal Medicine; Visit Provider Nurse Practitioner | DX: K59.09 Other constipation (principal); Z79.899 Other long term (current) drug therapy | CPT/HCPCS: 99212 ==

== ENCOUNTER 2023-10-11 15:12 | Outpatient (AMB) | payer OTHER, SELFPAY ==
--- NOTE | 2023-10-11 15:14 | MHC.OFFVIS ---
Vital Signs 10/11/23 15:15 Height 5 ft 7 in Weight 160 lb 0.889 oz BMI 25.1 BP 102/59 L Blood Pressure Location Lt brachial Position Sitting Pulse 64 Intake Visit Reasons: 3 week follow up Intake Note: Angelica returns to in office visit today in follow up of chronic constipation. CC: Patient states that she started taking the Linzess, control pill, and nitrofurantoin for UTI and she had a bad reaction for 2 weeks where she began to have pain from her knees, stomach, and tiredness. Patient states that she still feels very tired. She continues taking the Linzess and it helps with constipation. Gettering Operator Required: No Accompanied by: Self / Same As Patient Allergies No Known Allergies Allergy (Verified 10/11/23 15:16) HPI HPI 3 week follow up: Details: Assessment & Plan (1) Chronic constipation: Code(s): K59.09 - Other constipation Category: Medical Plan She has been lost to folllow up since 2021! She is finding the Linzess 290 is too strong for her. Will go to 72mcg and if not strong enough she can double until she sees me. She was just dx'ed with and ovarian cyst and this was causing her abd pain. ROV 3 weeks. Medications: New linaclotide (Linzess) 72 mcg PO QAM 30 caps 6RF K59.09 - Other constipation Discontinued linaclotide Discontinued Reason: Doctor's Order 290 mcg PO QAM 30 days 30 caps 6RF K59.09 - Other constipation TODAY'S VISIT APPARENTLY, SHE WAS TAKING 3 medications at once a new control pill, the Linzess at the lower dose and the antibiotic nitrofurantoin. This caused her pain in her lower extremities and GI issues. She has since stopped the antibiotic but still feels drained. I think her problems were a/e form the nitrofurantion; as these are known possible s/e. She has been off of it for 5-6 days. She has been using the Linzess 72, but more intermittently given the diarrhea form the abx. We will watch and wait. She will be seeing Dr. Mares for her knee pain needs work restriction for job. ROV 8 weeks. [facility] Medical History Counseling for initiation of control method Folliculitis barbae Knee pain, bilateral Depression screening negative Tinea manuum control counseling Physical exam Hospital discharge follow-up Hip pain, bilateral Chronic pain syndrome Osteoarthritis of knees, bilateral Ear infection Surgical History No pertinent past surgical history Family History Father Fibromyalgia Cancer Nerve damage Depression Anxiety Social History Housing: Apartment Alcohol intake: never Patient Tobacco Use Status: Never used Tobacco e-Cigarette/Vaping Use: Never Used Second Hand Smoke Exposure: Yes service: No Current occupational status: employed and student Current occupation: [employer] & works at [employer] Current occupational exposures/hazards: No Cognitive needs: No Hearing needs: No Vision needs: No Female Reproductive History Menstrual Age of Menarche: 10 Review of Systems Const Reports fatigue, Denies fever(s), Denies night sweats, Denies poor appetite and Denies weight loss ENT Reports Normal hearing present, Denies dental pain, Denies dysphagia, Denies hearing loss, Denies mouth pain, Denies odynophagia, Denies throat swelling, Denies tongue swelling and Reports other (Dentition adequate) Card Reports no additional complaints Resp Reports no additional complaints GI Details: Reports abdominal pain, Denies melena, Denies bloating, Denies hematochezia, Reports constipation, Denies GI cramping, Denies dysphagia, Denies excessive flatus, Denies early satiety, Denies heartburn, Denies diarrhea, Denies nausea, Denies odynophagia, Denies vomiting and Denies hematemesis Reports dysuria Musc Reports myalgias and Reports radiating pain into limb Skin/Breast Denies pruritus, Denies lesions, Denies rash and Denies jaundice Neuro Reports Normal hearing present and Denies Abnormal speech present Endo Reports fatigue Aller/Immun Denies throat swelling and Denies tongue swelling Physical Exam Vital Signs: Last Vital Signs Pulse 64 10/11/23 15:15 BP 102/59 L 10/11/23 15:15 BMI result Body Mass Index 25.1 Const General: cooperative, no acute distress, well developed and well groomed Nutritional Appearance: average body habitus and well nourished Orientation/consciousness: oriented to person, oriented to place and oriented to time Limitations: No language barrier HEENT Head: Yes normocephalic and Yes atraumatic Eyes General: appearance normal, both eyes and all related structures Pupils: Equal, round and reactive pupils present Neck Neck: Yes normal visual inspection and Yes no lymphadenopathy Thyroid: Thyroid normal Resp Effort & Inspection: normal respiratory effort and able to speak in complete sentences Auscultation: clear to auscultation bilaterally Cardio Rate: regular rate Rhythm: regular rhythm Heart sounds: Normal, physiologic split S2 sound present Peripheral pulses: radial pulses present and posterior tibial pulses present GI Inspection: No distended and No Abdominal panniculus present Palpation (GI): Soft to palpation, nontender, no guarding, not rigid and No hepatosplenomegaly present Percussion: Yes normal to percussion Auscultation: normal bowel sounds Rectal Exam - Female: deferred Skin General skin exam: no rashes or lesions noted, turgor normal, skin not dry, no jaundice, No spider nevi and no striae Rashes: no rashes Nails: normal Neuro General: oriented to person, oriented to place and oriented to time Cranial nerves: Yes Equal, round and reactive pupils present and Yes Normal hearing present Speech: No Abnormal speech present Extrem General: Yes normal to inspection, No clubbing, No cyanosis and No edema Psych Appearance: grossly normal and well kempt Mental Status: mental status grossly normal Speech and movement: Normal speech and movement present Affect: normal affect Attitude: cooperative Thought process: Normal thought process present and not confabulating Thought content: Normal thought content present Insight: Limited insight present (Psych) Judgement: Limited judgement present (Psych) Assessment & Plan Assessment & Plan (1) Chronic constipation: Code(s): K59.09 - Other constipation Category: Medical Plan APPARENTLY, SHE WAS TAKING 3 medications at once a new control pill, the Linzess at the lower dose and the antibiotic nitrofurantoin. This caused her pain in her lower extremities and GI issues. She has since stopped the antibiotic but still feels drained. I think her problems were a/e form the nitrofurantion; as these are known possible s/e. She has been off of it for 5-6 days. She has been using the Linzess 72, but more intermittently given the diarrhea form the abx. We will watch and wait. She will be seeing Dr. Mares for her knee pain needs work restriction for job. ROV 8 weeks. Coding Level of Care Code Est Pt Level 3 (56049) Diagnoses Chronic constipation K59.09
[2023-10-11 15:15] VITALS: BP 102/59; PULSE 64; BMI 25.1
== END 2023-10-11 15:48 | disposition home or self-care (01) ==
PROVIDERS: PCP Internal Medicine; Visit Provider Nurse Practitioner
DX: K59.09 Other constipation (principal)
CPT/HCPCS: 99213

== ENCOUNTER → 2023-10-11 15:12 | Outpatient (BNVA) | payer OTHER, SELFPAY | PROVIDERS: PCP Internal Medicine; Visit Provider Nurse Practitioner | DX: K59.09 Other constipation (principal) | CPT/HCPCS: 99212 ==

== ENCOUNTER 2023-11-12 14:46 | Outpatient (AMB) | payer OTHER, SELFPAY ==
[2023-11-12 14:53] VITALS: BMI 25.1
--- NOTE | 2023-11-12 14:53 | MHC.OFFVIS ---
Vital Signs 11/12/23 14:53 Height 5 ft 7 in Weight 160 lb BMI 25.1 Intake Visit Reasons: OV- b/l knees pain f/u Intake Note: Angelica is a 18 yr old female who presents today for a f/u for bilateral knee pain. Pt reports worse pain from the RT hip down to the RT knee and mild pain concentrated in the LT knee. She says standing for long periods of time and inclined walking increases her pain. She has been taking naproxen and ibuprofen for the pain and prefers the naproxen. Allergies No Known Allergies Allergy (Verified 11/12/23 14:53) Medication List - Last Reconciled 11/12/23 by Yoon Chowdhury PA-C desog-e.estradiol/e.estradiol 0.15-0.02 mgx21 /0.01 mg x 5 1 tab PO DAILY ibuprofen 800 mg PO Q8H PRN linaclotide (Linzess) 72 mcg PO QAM loratadine 10 mg PO DAILY PRN HPI HPI OV- b/l knees pain f/u: Details: 18-year-old female who returns to the office today for a follow-up of bilateral knee pain. She states she has pain in her bilateral knees that is worse on her right knee. She reports mild pain in her left knee and right hip pain that radiates down to her right knee. Her pain is aggravated with laying on her sides, walking on inclines and standing for long periods of time. She takes naproxen and ibuprofen for her pain. [facility] Medical History Counseling for initiation of control method Folliculitis barbae Knee pain, bilateral Depression screening negative Tinea manuum control counseling Physical exam Hospital discharge follow-up Hip pain, bilateral Chronic pain syndrome Osteoarthritis of knees, bilateral Ear infection Surgical History No pertinent past surgical history Family History Father Fibromyalgia Cancer Nerve damage Depression Anxiety Social History Housing: Apartment Alcohol intake: never Patient Tobacco Use Status: Never used Tobacco e-Cigarette/Vaping Use: Never Used Second Hand Smoke Exposure: Yes service: No Current occupational status: employed and student 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 Retropatellar tenderness present. Full ROM with crepitus. Negative Dannie?s. No ligamentous laxity. NVI. Assessment & Plan Assessment & Plan (1) Chondromalacia of both patellae: Code(s): M22.41 - Chondromalacia patellae, right knee; M22.42 - Chondromalacia patellae, left knee Category: Medical Plan We discussed options which include PT, NSAIDs and injections. The patient will defer on the injection today and proceed with PT and NSAIDs. If symptoms persist, she will contact me for an injection, otherwise, PRN. Orders: Orders PT Evaluation and Treatment 11/12/23 M22.41 - Chondromalacia patellae, right knee, M22.42 - Chondromalacia patellae, left knee Patient Instructions: Scribed for Yoon Chowdhury PA-C, by Pankaj Godoy medical laboratory manager, on 11/12/2023 at 3:00 PM EST.? I, Yoon Chowdhury PA-C, have personally reviewed and agree with the information entered by the scribe. Coding Level of Care Code Est Pt Level 3 (46465) Diagnoses Chondromalacia of both patellae M22.41; M22.42
== END 2023-11-12 15:33 | disposition home or self-care (01) ==
PROVIDERS: PCP Internal Medicine; Visit Provider Physician Assistant
DX: M22.41 Chondromalacia patellae, right knee (principal); M22.42 Chondromalacia patellae, left knee
CPT/HCPCS: 99213

== ENCOUNTER → 2023-11-12 14:46 | Outpatient (BNVA) | payer OTHER, SELFPAY | PROVIDERS: PCP Internal Medicine; Visit Provider Physician Assistant | DX: M22.41 Chondromalacia patellae, right knee (principal); M22.42 Chondromalacia patellae, left knee | CPT/HCPCS: 99212 ==

== ENCOUNTER 2023-12-09 22:44 | Emergency (ER) | payer OTHER, SELFPAY ==
[2023-12-09 22:53] VITALS: BP 120/68; PULSE 77; RESP 18; TEMP 36.8; O2SAT 97; BMI 24.9
--- NOTE | 2023-12-09 23:35 | ED_ITS ---
HPI - General Adult General Chief complaint: General Medical Stated complaint: L side of throat and tongue pain Time Seen by Provider: 12/09/23 23:34 Source: patient Mode of arrival: ambulatory Limitations: no limitations History of Present Illness ED Provider: malik PATHAK narrative: Patient complaining of sore throat for last 1 week seen at urgent care center 4 days strep COVID flu test was negative started on Zithromax patient is still feel pain when she swallows specially on the left side no cough no fever no other family member sick Related Data Home Medications ?Medication ?Instructions ?Recorded ?Confirmed ibuprofen 800 mg tablet 800 mg PO Q8H PRN 09/14/23 11/12/23 loratadine 10 mg tablet 10 mg PO DAILY PRN 10/11/23 11/12/23 Previous Rx's ?Medication ?Instructions ?Recorded desogestrel-e.estradiol 0.15 1 tab PO DAILY #84 tabs 09/11/23 mg-0.02 mg(21)/e.estrad 0.01 mg(5) tablet linaclotide 72 mcg capsule 72 mcg PO QAM #30 caps 09/14/23 (Linzess) cefuroxime axetil 500 mg tablet 500 mg PO BID 7 days #14 tabs 12/10/23 Allergies Allergy/AdvReac Type Severity Reaction Status Date / Time No Known Allergies Allergy Verified 12/09/23 22:57 Review of Systems Review of Systems: Yes all other systems are reviewed and are negative [facility] Past Medical History Medical History Counseling for initiation of control method Folliculitis barbae Knee pain, bilateral Depression screening negative Tinea manuum control counseling Physical exam Hospital discharge follow-up Hip pain, bilateral Chronic pain syndrome Osteoarthritis of knees, bilateral Ear infection Surgical History No pertinent past surgical history Family History Family History Father Fibromyalgia Cancer Nerve damage Depression Anxiety Social History Social History Housing: Apartment Alcohol intake: never Patient Tobacco Use Status: Never used Tobacco Smoked in Last 30 Days: No e-Cigarette/Vaping Use: Never Used Second Hand Smoke Exposure: Yes Use of substances other than those prescribed or required for medical reasons: No Advance Directives: No Advance Directives Information Provided: Yes Do you have a plan to hurt others: No Plan Patient : No service: No Current occupational status: employed and student 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 Oriented X3. No acute distress. ENT: Pharynx slight erythema on the left side peritonsillar area no abscess Oral Mucosa moist tympanic membrane intact Neck: Normal inspection. Neck supple. Left upper cervical lymph node+ CVS: Normal heart rate and rhythm. Pulses normal. Respiratory: No respiratory distress. Equal air entry bilateral, no wheezing/rales/rhonchi Skin: Skin warm and dry. Normal skin color. Normal skin turgor. Extremities: No lower extremity edema. Neuro: Oriented X 3. Medications Administered Discontinued Medications Generic Name Dose Route Start Last Admin Trade Name Freq PRN Reason Stop Dose Admin Ibuprofen 600 mg 12/09/23 23:46 12/09/23 23:50 Ibuprofen 600 Mg Tablet PO 12/09/23 23:47 600 mg ONCE ONE Administration Medical Decision Making Medical Decision Making [facility] Narrative: Patient has acute pharyngitis/tonsillitis with cervical lymphadenopathy will pr escribe Ceftin. Lab Data [facility] Lab Attestation statement: I reviewed the patient's lab results. Labs: Lab Results 12/09/23 Range/Units 23:53 S. pyogenes GrpA DAVIE Negative (Negative) Discharge Plan Discharge Clinical Impression: Acute infective tonsillitis Patient Disposition: Home, Self-Care Instructions: Tonsillitis (ED) Additional Instructions: Take antibiotic as prescribed Saline gargles Prescriptions: New cefuroxime axetil 500 mg tablet 500 mg PO BID 7 Days Qty: 14 0RF No Action loratadine 10 mg tablet 10 mg PO DAILY PRN ibuprofen 800 mg tablet 800 mg PO Q8H PRN Linzess 72 mcg capsule 72 mcg PO QAM Qty: 30 6RF desog-e.estradiol/e.estradiol 0.15-0.02 mgx21 /0.01 mg x 5 tablet 1 tab PO DAILY Qty: 84 4RF Interventions: ED Discharge Assessment Last Done: 12/10/23 00:53 Discharge Date/Time: 12/10/23 00:53 Print Language: Lithuanian
[2023-12-09] MEDS: Ibuprofen 600 MG TABLET PO (23:50)
[2023-12-10 00:26] LABS: IDNOW Serial# 08D9AD1C; Strep A Nucleic Acid Negative (Negative)
[2023-12-10 00:53] VITALS: BP 120/68; PULSE 77; RESP 18; TEMP 36.8; O2SAT 97
== END 2023-12-10 00:53 | disposition home or self-care (01) ==
PROVIDERS: Emergency Provider Internal Medicine; PCP Internal Medicine
DX: J03.90 Acute tonsillitis, unspecified (principal); R07.0 Pain in throat; Z79.899 Other long term (current) drug therapy
CPT/HCPCS: 87651; 99283; 99284

== ENCOUNTER 2023-12-11 14:29 | Outpatient (AMB) | payer OTHER, SELFPAY ==
[2023-12-11 14:43] VITALS: BP 112/68; BMI 24.6
--- NOTE | 2023-12-11 14:43 | MHC.OFFVIS ---
Vital Signs 12/11/23 14:43 Height 5 ft 7 in Weight 157 lb BMI 24.6 BP 112/68 Intake Visit Reasons: F/U,3 mth.pill check Information Interpreted: clinical only Qa Automation Architect: Qa Automation Architect Present Allergies No Known Allergies Allergy (Verified 12/11/23 14:44) Medication List - Last Reconciled 12/11/23 by Jennifer Fournier CNM cefuroxime axetil 500 mg PO BID 7 days desog-e.estradiol/e.estradiol 0.15-0.02 mgx21 /0.01 mg x 5 1 tab PO DAILY ibuprofen 800 mg PO Q8H PRN linaclotide (Linzess) 72 mcg PO QAM loratadine 10 mg PO DAILY PRN Is last menstrual period known: Yes Last menstrual period: 12/05/23 HPI HPI F/U,3 mth.pill check: Details: Three month pill check she is 18 years old she is ?not very sexually active with her boyfriend. She was on Depo-Provera past and when asked to compare how she is feeling on the pills as compared to before she was on the pills she compares it to when she was on the Depo Provera. She says she was on Depo-Provera ?for no reason? because her mother with whom she moved in with after not seeing her for a long time wanted her to be on control. When she went off the Depo-Provera she had an experience with an ovarian cysts so she wants to prevent pain of the. When I asked her if she would interested in having a baby or not she shrug her shoulders and said that she thought she would at least get past age 19. She says that she still gets cramps with her. That are painful and they run from the tops of her legs down to her knees and she is not sure if it is because she has got some issues with her knees but she says that they are regularly when she is on the blue pills of the pack and she typically gets her period on day 3 of the blue pills they are a little bit health unit coordinator in shorter. And the pain is still better than when she had the ovarian cyst which is what she wants to avoid. When I asked her if she wanted to continue on the pills she eventually decided that she would stay on pills though I did tell her that she had the options of not being on anything the pills or going back on the Depo or trying some other methods such as a Nexplanon that she decided she would stay on pills after all. She has a primary care provider but says she has not seen her in 3 years and has been trying to arrange to see her as follow-up from the ER for tonsillitis but has not been able to get in and see her she was prescribed antibiotics but did not get to go filled yet because she was working. When I asked her if she thought she might depressed she said that she was diagnosed with major depression and 3 kinds of anxiety. I asked her if she wanted to see counselor or therapist she said she thinks all they do is listen they do not do much [facility] Medical History (Updated 12/11/23 @ 15:53 by Jennifer Fournier CNM) control counseling Counseling for initiation of control method Folliculitis barbae Knee pain, bilateral Depression screening negative Tinea manuum Physical exam Hospital discharge follow-up Hip pain, bilateral Chronic pain syndrome Osteoarthritis of knees, bilateral Ear infection Surgical History No pertinent past surgical history Family History Father Fibromyalgia Cancer Nerve damage Depression Anxiety Social History Housing: Apartment Alcohol intake: never Patient Tobacco Use Status: Never used Tobacco e-Cigarette/Vaping Use: Never Used Second Hand Smoke Exposure: Yes service: No Current occupational status: employed and student 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 [employer] Current occupational exposures/hazards: No Cognitive needs: No Hearing needs: No Vision needs: No Female Reproductive History Menstrual Age of Menarche: 10 Date of last menstrual period: 12/05/23 control method: pills Total pregnancies: 0 Physical Exam Vital Signs: Last Vital Signs BP 112/68 12/11/23 14:43 BMI result Body Mass Index 24.6 Assessment & Plan Assessment & Plan (1) Ovarian cyst: Comment: 4.4 cm, dx at [facility] er 08/30/23 Code(s): N83.209 - Unspecified ovarian cyst, unspecified side Category: Medical (2) Depression: Code(s): F32.A - Depression, unspecified Category: Medical (3) control counseling: Code(s): Z30.09 - Encounter for other general counseling and advice on contraception Category: Medical Plan Three month pill check she is 18 years old she is ?not very sexually active with her boyfriend. She was on Depo-Provera past and when asked to compare how she is feeling on the pills as compared to before she was on the pills she compares it to when she was on the Depo Provera. She says she was on Depo-Provera ?for no reason? because her mother with whom she moved in with after not seeing her for a long time wanted her to be on control. When she went off the Depo-Provera she had an experience with an ovarian cysts so she wants to prevent pain of the. When I asked her if she would interested in having a baby or not she shrug her shoulders and said that she thought she would at least get past age 19. She says that she still gets cramps with her. That are painful and they run from the tops of her legs down to her knees and she is not sure if it is because she has got some issues with her knees but she says that they are regularly when she is on the blue pills of the pack and she typically gets her period on day 3 of the blue pills they are a little bit health unit coordinator in shorter. And the pain is still better than when she had the ovarian cyst which is what she wants to avoid. When I asked her if she wanted to continue on the pills she eventually decided that she would stay on pills though I did tell her that she had the options of not being on anything the pills or going back on the Depo or trying some other methods such as a Nexplanon that she decided she would stay on pills after all. She has a primary care provider but says she has not seen her in 3 years and has been trying to arrange to see her as follow-up from the ER for tonsillitis but has not been able to get in and see her she was prescribed antibiotics but did not get to go filled yet because she was working. When I asked her if she thought she might depressed she said that she was diagnosed with major depression and 3 kinds of anxiety. I asked her if she wanted to see counselor or therapist she said she thinks all they do is listen they do not do much. I did suggest she may want to discuss this with her primary care provider when she does see her. I reviewed with her again how to take pills and what her options were and since she has decided to stay on the control pills I am prescribing her year's prescription again. She will be due for her 1st Pap smear and annual within the next year I did explain briefly what this entails and what it for. I did ask her whether not she had received the Gardasil vaccine in her teenage years as she has been in many places in her life and she did not know but says they did some blood test at school checking on vaccines but it was not test I had heard of. We will see her within the next year for annual exam and Pap smear control follow-up. I reviewed with her that everyone experiences menstrual clamps and a different way and very many people will describe them as radiating down from very uterus through the ligaments 2 their legs other women will experience them in their lower back and other women will just experienced them abdominally in the front. Typically on control pills with no missed pills periods would be health unit coordinator and less crampy than without, but again continuation on the pills is her choice. In response to a previous question about if she were not on control pills she voiced use of plan B if it necessary and I did have a discussion about plan B not being plan a she also said she would try to have her partner use condoms but tells her he does not like that. Also discussed what she likes to do for activities and exercise she likes playing games on ex spots. She is careful about where to walk because of safety issues but she and her boyfriend might back with her father to a safer neighborhood. Medications: Refilled desog-e.estradiol/e.estradiol 0.15-0.02 mgx21 /0.01 mg x 5 1 tab PO DAILY 84 tabs 4RF Coding Level of Care Code Est Pt Level 3 (39423) Diagnoses Ovarian cyst N83.209 Depression F32.A control counseling Z30.09
== END 2023-12-11 15:50 | disposition home or self-care (01) ==
LOC: HO.HWSM 14:30
PROVIDERS: PCP Internal Medicine; Visit Provider Advanced Practice Midwife
DX: N83.209 Unspecified ovarian cyst, unspecified side (principal); F32.A Depression, unspecified; Z30.09 Encounter for other general counseling and advice on contraception
CPT/HCPCS: 99213

== ENCOUNTER 2023-12-11 14:29 | Outpatient (REF) | payer OTHER, SELFPAY ==
--- NOTE | ~2023-12-11 | XR_ITS ---
EXAMINATION: XR SOFT TISSUE NECK CLINICAL INDICATION: Acute pharyngitis COMPARISON: None available. TECHNIQUE: 2 views of the soft tissue neck were obtained. FINDINGS: Prevertebral soft tissues are normal. The epiglottis and aryepiglottic folds are unremarkable. No acute osseous abnormality is seen. The lung apices are clear. XR/XR soft tissue neck IMPRESSION: Unremarkable examination. Electronically signed by: Kadeem Herrera MD 01/05/2024 07:57 PM EDT
== END 2023-12-11 14:30 | disposition home or self-care (01) ==
LOC: HO.XRAY 14:29
PROVIDERS: PCP Internal Medicine; Visit Provider Advanced Practice Midwife
DX: K59.09 Other constipation (principal); J02.9 Acute pharyngitis, unspecified; N83.209 Unspecified ovarian cyst, unspecified side; F32.A Depression, unspecified; Z30.09 Encounter for other general counseling and advice on contraception; Z79.899 Other long term (current) drug therapy
CPT/HCPCS: 70360; 99212

== ENCOUNTER 2023-12-11 15:56 | Outpatient (AMB) | payer OTHER, SELFPAY ==
[2023-12-11 16:01] VITALS: BP 108/64; PULSE 58; BMI 24.2
--- NOTE | 2023-12-11 16:01 | MHC.OFFVIS ---
Vital Signs 12/11/23 16:01 Height 5 ft 7 in Weight 154 lb 12.232 oz BMI 24.2 BP 108/64 Blood Pressure Location Lt brachial Position Sitting Pulse 58 Intake Visit Reasons: 2 month follow up [facility] eval LInzess Intake Note: Angelica presents to in office 2 months follow up of [facility] to evaluate Linzess. CC: Patient states that the Linzess has been working well for her constipation. Allergies No Known Allergies Allergy (Verified 01/22/24 10:09) HPI HPI 2 month follow up [facility] eval LInzess: Details: Assessment & Plan (1) Chronic constipation: Code(s): K59.09 - Other constipation Category: Medical Plan APPARENTLY, SHE WAS TAKING 3 medications at once a new control pill, the Linzess at the lower dose and the antibiotic nitrofurantoin. This caused her pain in her lower extremities and GI issues. She has since stopped the antibiotic but still feels drained. I think her problems were a/e form the nitrofurantion; as these are known possible s/e. She has been off of it for 5-6 days. She has been using the Linzess 72, but more intermittently given the diarrhea form the abx. We will watch and wait. She will be seeing Dr. Mares for her knee pain needs work restriction for job. ROV 8 weeks. TODAY'S VISIT She is doing ok with the Linzess 72mcg. Now she developed a sore throat about a week ago with subjective fevers/chills and left sided neck sever pain and swelling - very painful to eat. Wt loss about 7 lbs. Seen as an urgent care and she was negative for influenza and COVID. They gave her Zithromax which only seem to make it worse. She then presented to our ER who did a swab for strep that was negative and they gave her a prescription for a cephalosporin. It does not appear that anyone considered mono in the differential diagnosis so I will order this since it is still quite bothersome to her and she still has quite a bit of trouble eating. Also get a lateral x-ray of the neck to see if this any reason to suspect retropharyngeal abscess. Return office visit in 4 weeks to check on her. [facility] Medical History Abnormal prominence of scapula control counseling Immunization due Rash Counseling for initiation of control method Folliculitis barbae Knee pain, bilateral Depression screening negative Tinea manuum Physical exam Hospital discharge follow-up Hip pain, bilateral Chronic pain syndrome Osteoarthritis of knees, bilateral Ear infection Surgical History No pertinent past surgical history Family History Father Fibromyalgia Cancer Nerve damage Depression Anxiety Social History Housing: Apartment Alcohol intake: never Patient Tobacco Use Status: Never used Tobacco e-Cigarette/Vaping Use: Never Used Second Hand Smoke Exposure: Yes service: No Current occupational status: employed and student 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[employer] Current occupational exposures/hazards: No Cognitive needs: No Hearing needs: No Vision needs: No Female Reproductive History Menstrual Age of Menarche: 10 Review of Systems Const Reports chills, Denies fatigue, Denies fever(s), Reports lethargy, Denies night sweats, Reports poor appetite and Reports weight loss ENT Reports Normal hearing present, Denies dental pain, Denies dysphagia, Denies hearing loss, Denies mouth pain, Denies odynophagia, Reports sore throat, Reports throat swelling, Denies tongue swelling and Reports other (Dentition adequate) Card Reports no additional complaints Resp Reports no additional complaints GI Details: Denies abdominal pain, Denies melena, Denies bloating, Denies hematochezia, Reports constipation, Denies GI cramping, Denies dysphagia, Denies excessive flatus, Denies early satiety, Denies heartburn, Denies diarrhea, Denies nausea, Denies odynophagia, Denies vomiting and Denies hematemesis Skin/Breast Denies pruritus, Denies lesions, Denies rash and Denies jaundice Neuro Reports Normal hearing present and Denies Abnormal speech present Endo Denies fatigue Aller/Immun Reports throat swelling and Denies tongue swelling Physical Exam Vital Signs: Last Vital Signs Pulse 58 12/11/23 16:01 BP 108/64 12/11/23 16:01 BMI result Body Mass Index 24.2 Const General: cooperative, no acute distress, well developed and well groomed Nutritional Appearance: average body habitus and well nourished Orientation/consciousness: oriented to person, oriented to place and oriented to time Limitations: No language barrier HEENT Head: Yes normocephalic and Yes atraumatic Mouth: muffled voice Throat: Yes tonsils normal, Yes uvula midline and No peritonsillar mass Eyes General: appearance normal, both eyes and all related structures Pupils: Equal, round and reactive pupils present Neck Neck: Yes normal visual inspection and Yes no lymphadenopathy Thyroid: Thyroid normal Resp Effort & Inspection: normal respiratory effort and able to speak in complete sentences Auscultation: clear to auscultation bilaterally Cardio Rate: regular rate Rhythm: regular rhythm Heart sounds: Normal, physiologic split S2 sound present Peripheral pulses: radial pulses present and posterior tibial pulses present GI Inspection: No distended and No Abdominal panniculus present Palpation (GI): Soft to palpation, nontender, no guarding, not rigid and No hepatosplenomegaly present Percussion: Yes normal to percussion Auscultation: normal bowel sounds Rectal Exam - Female: deferred Skin General skin exam: no rashes or lesions noted, turgor normal, skin not dry, no jaundice, No spider nevi and no striae Rashes: no rashes Nails: normal Neuro General: oriented to person, oriented to place and oriented to time Cranial nerves: Yes Equal, round and reactive pupils present and Yes Normal hearing present Speech: No Abnormal speech present Extrem General: Yes normal to inspection, No clubbing, No cyanosis and No edema Psych Appearance: grossly normal and well kempt Mental Status: mental status grossly normal Speech and movement: Normal speech and movement present Affect: normal affect Attitude: cooperative Thought process: Normal thought process present and not confabulating Thought content: Normal thought content present Insight: Fair insight present (Psych) and Limited insight present (Psych) Judgement: Fair judgement present (Psych) and Limited judgement present (Psych) Assessment & Plan Assessment & Plan (1) Chronic constipation: Code(s): K59.09 - Other constipation Category: Medical (2) Sore throat: Code(s): J02.9 - Acute pharyngitis, unspecified Category: Medical Plan She is doing ok with the Linzess 72mcg. Now she developed a sore throat about a week ago with subjective fevers/chills and left sided neck sever pain and swelling - very painful to eat. Wt loss about 7 lbs. Seen as an urgent care and she was negative for influenza and COVID. They gave her Zithromax which only seem to make it worse. She then presented to our ER who did a swab for strep that was negative and they gave her a prescription for a cephalosporin. It does not appear that anyone considered mono in the differential diagnosis so I will order this since it is still quite bothersome to her and she still has quite a bit of trouble eating. Also get a lateral x-ray of the neck to see if this any reason to suspect retropharyngeal abscess. Return office visit in 4 weeks to check on her. Orders: Orders Monotest 12/11/23 J02.9 - Acute pharyngitis, unspecified XR soft tissue neck 12/11/23 J02.9 - Acute pharyngitis, unspecified Medications: Refilled linaclotide (Linzess) 72 mcg PO QAM 30 caps 6RF K59.09 - Other constipation Coding Level of Care Code Est Pt Level 3 (26368) Diagnoses Chronic constipation K59.09 Sore throat J02.9
== END 2023-12-11 16:49 | disposition home or self-care (01) ==
PROVIDERS: PCP Internal Medicine; Visit Provider Nurse Practitioner
DX: K59.09 Other constipation (principal); J02.9 Acute pharyngitis, unspecified
CPT/HCPCS: 99213

== ENCOUNTER 2024-01-03 21:48 | Emergency (ER) | payer OTHER, SELFPAY ==
[2024-01-03 23:01] VITALS: BP 118/76; PULSE 78; RESP 18; TEMP 36.9; O2SAT 98; BMI 24.0
== END 2024-01-04 01:09 | disposition left against medical advice (07) ==
PROVIDERS: Emergency Provider Emergency Medicine; PCP Internal Medicine
DX: M54.42 Lumbago with sciatica, left side (principal); M54.41 Lumbago with sciatica, right side; M79.602 Pain in left arm; G89.29 Other chronic pain; M25.562 Pain in left knee; M25.561 Pain in right knee; Z53.21 Procedure and treatment not carried out due to patient leaving prior to being seen by health care provider
CPT/HCPCS: 99281

== ENCOUNTER → 2024-01-08 16:04 | Outpatient (BNVA) | payer SELFPAY | PROVIDERS: PCP Internal Medicine; Visit Provider Nurse Practitioner ==

== ENCOUNTER 2024-01-22 10:01 | Outpatient (AMB) | payer OTHER, SELFPAY ==
--- NOTE | 2024-01-22 10:04 | A.OFFVIS_ITS ---
Vital Signs 01/22/24 10:05 Height 5 ft 7 in Weight 154 lb 12.232 oz BMI 24.2 BP 120/80 Blood Pressure Location Lt brachial Position Sitting Pulse 94 Intake Visit Reasons: 4 weeks follow up Intake Note: Angelica presents to in office visit today in follow up of abdominal pain. CC: Patient reports that she was having abdominal pain for 2 weeks and nauseous. She began to take the Linzess at bedtime and the abd pain became less. She states that sometimes she feels nauseous when thinking about food. Commercial Relief Driver Required: No Accompanied by: Self / Same As Patient Allergies No Known Allergies Allergy (Verified 01/22/24 10:09) PFSH Medical History Abnormal prominence of scapula control counseling Immunization due Rash Counseling for initiation of control method Folliculitis barbae Knee pain, bilateral Depression screening negative Tinea manuum Physical exam Hospital discharge follow-up Hip pain, bilateral Chronic pain syndrome Osteoarthritis of knees, bilateral Ear infection Surgical History No pertinent past surgical history Family History Father Fibromyalgia Cancer Nerve damage Depression Anxiety Social History Housing: Apartment Alcohol intake: never Patient Tobacco Use Status: Never used Tobacco e-Cigarette/Vaping Use: Never Used Second Hand Smoke Exposure: Yes service: No Current occupational status: employed and student 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
--- NOTE | 2024-01-22 10:04 | A.OFFVIS_ITS ---
Vital Signs 01/22/24 10:05 Height 5 ft 7 in Weight 154 lb 12.232 oz BMI 24.2 BP 120/80 Blood Pressure Location Lt brachial Position Sitting Pulse 94 Intake Visit Reasons: 4 weeks follow up Allergies No Known Allergies Allergy (Verified 01/22/24 10:09) HPI HPI 4 weeks follow up: Details: She is doing ok with the Linzess 72mcg. Now she developed a sore throat about a week ago with subjective fevers/chills and left sided neck sever pain and swelling - very painful to eat. Wt loss about 7 lbs. Seen as an urgent care and she was negative for influenza and COVID. They gave her Zithromax which only seem to make it worse. She then presented to our ER who did a swab for strep that was negative and they gave her a prescription for a cephalosporin. It does not appear that anyone considered mono in the differential diagnosis so I will order this since it is still quite bothersome to her and she still has quite a bit of trouble eating. Also get a lateral x-ray of the neck to see if this any reason to suspect retropharyngeal abscess. Return office visit in 4 weeks to check on her. Assessment & Plan (1) Chronic constipation: Code(s): K59.09 - Other constipation Category: Medical (2) Sore throat: Code(s): J02.9 - Acute pharyngitis, unspecified Category: Medical Orders: Orders Monotest Today J02.9 - Acute pharyngitis, unspecified XR soft tissue neck Today J02.9 - Acute pharyngitis, unspecified Medications: Refilled linaclotide (Linzess) 72 mcg PO QAM 30 caps 6RF K59.09 - Other constipation LABS Not obtained XR NECK 01/05/24 FINDINGS: Prevertebral soft tissues are normal. The epiglottis and aryepiglottic folds are unremarkable. No acute osseous abnormality is seen. The lung apices are clear. XR/XR soft tissue neck IMPRESSION: Unremarkable examination. TODAYS VISIT Her sore throat resolved about 4 days after getting the x-ray. Sounds like this was a slow to resolve viral syndrome. She has a new problem that developed with sudden onset of discomfort with stabbing fleeting pain in the bilateral lower quadrants of her abdomen. This was accompanied by fairly severe nausea both at bedtime and in the morning. She can not identify eating any suspect foods such as raw fish undercooked foods or eating out, there are no other known similar sick contacts, and she did not have diarrhea. She moved her Linzess to the evening with a meal and this seemed to help somewhat. The nausea seems to be slowly resolving. At this point I do not think it would be helpful to do any testing. It is likely she picked up another viral syndrome given the time of year and the fact her resistance may be compromised due to just getting over a viral sore throat. At this point I think we should just watch and wait. Of course it is fine for her to take her Linzess in the evening if this better suit her body's timing. Return office visit in 3 weeks. [facility] Medical History Abnormal prominence of scapula control counseling Immunization due Rash Counseling for initiation of control method Folliculitis barbae Knee pain, bilateral Depression screening negative Tinea manuum Physical exam Hospital discharge follow-up Hip pain, bilateral Chronic pain syndrome Osteoarthritis of knees, bilateral Ear infection Surgical History No pertinent past surgical history Family History Father Fibromyalgia Cancer Nerve damage Depression Anxiety Social History Housing: Apartment Alcohol intake: never Patient Tobacco Use Status: Never used Tobacco e-Cigarette/Vaping Use: Never Used Second Hand Smoke Exposure: Yes service: No Current occupational status: employed and student 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 at [employer] Current occupational exposures/hazards: No Cognitive needs: No Hearing needs: No Vision needs: No Female Reproductive History Menstrual Age of Menarche: 10 Review of Systems Const Denies fatigue, Denies fever(s), Denies night sweats, Denies poor appetite and Denies weight loss ENT Reports Normal hearing present, Denies dental pain, Denies dysphagia, Denies hearing loss, Denies mouth pain, Denies odynophagia, Denies throat swelling, Denies tongue swelling and Reports other (Dentition adequate) Card Reports no additional complaints Resp Reports no additional complaints GI Details: Reports abdominal pain, Denies melena, Denies bloating, Denies hematochezia, Reports constipation, Reports GI cramping, Denies dysphagia, Denies excessive flatus, Denies early satiety, Denies heartburn, Denies diarrhea, Reports nausea, Denies odynophagia, Denies vomiting and Denies hematemesis Skin/Breast Denies pruritus, Denies lesions, Denies rash and Denies jaundice Neuro Reports Normal hearing present and Denies Abnormal speech present Endo Denies fatigue Aller/Immun Denies throat swelling and Denies tongue swelling Physical Exam Vital Signs: Last Vital Signs Pulse 94 01/22/24 10:05 BP 120/80 01/22/24 10:05 BMI result Body Mass Index 24.2 Const General: cooperative, no acute distress, well developed and well groomed Nutritional Appearance: average body habitus and well nourished Orientation/consciousness: oriented to person, oriented to place and oriented to time Limitations: No language barrier HEENT Head: Yes normocephalic and Yes atraumatic Eyes General: appearance normal, both eyes and all related structures Pupils: Equal, round and reactive pupils present Neck Neck: Yes normal visual inspection and Yes no lymphadenopathy Thyroid: Thyroid normal Resp Effort & Inspection: normal respiratory effort and able to speak in complete sentences Auscultation: clear to auscultation bilaterally Cardio Rate: regular rate Rhythm: regular rhythm Heart sounds: Normal, physiologic split S2 sound present Peripheral pulses: radial pulses present and posterior tibial pulses present GI Inspection: No distended and No Abdominal panniculus present Palpation (GI): Soft to palpation, nontender, no guarding, not rigid and No hepatosplenomegaly present Percussion: Yes normal to percussion Auscultation: normal bowel sounds Rectal Exam - Female: deferred Skin General skin exam: no rashes or lesions noted, turgor normal, skin not dry, no jaundice, No spider nevi and no striae Rashes: no rashes Nails: normal Neuro General: oriented to person, oriented to place and oriented to time Cranial nerves: Yes Equal, round and reactive pupils present and Yes Normal hearing present Speech: No Abnormal speech present Extrem General: Yes normal to inspection, No clubbing, No cyanosis and No edema Psych Appearance: grossly normal and well kempt Mental Status: mental status grossly normal Speech and movement: Normal speech and movement present Affect: normal affect Attitude: cooperative Thought process: Normal thought process present and not confabulating Thought content: Normal thought content present Insight: Fair insight present (Psych) Judgement: Fair judgement present (Psych) Assessment & Plan Assessment & Plan (1) Chronic constipation: Code(s): K59.09 - Other constipation Category: Medical (2) Sore throat: Code(s): J02.9 - Acute pharyngitis, unspecified Category: Medical (3) Nausea: Code(s): R11.0 - Nausea Category: Medical Plan Her sore throat resolved about 4 days after getting the x-ray. Sounds like this was a slow to resolve viral syndrome. She has a new problem that developed with sudden onset of discomfort with stabbing fleeting pain in the bilateral lower quadrants of her abdomen. This was accompanied by fairly severe nausea both at bedtime and in the morning. She can not identify eating any suspect foods such as raw fish undercooked foods or eating out, there are no other known similar sick contacts, and she did not have diarrhea. She moved her Linzess to the evening with a meal and this seemed to help somewhat. The nausea seems to be slowly resolving. At this point I do not think it would be helpful to do any testing. It is likely she picked up another viral syndrome given the time of year and the fact her resistance may be compromised due to just getting over a viral sore throat. At this point I think we should just watch and wait. Of course it is fine for her to take her Linzess in the evening if this better suit her body's timing. Return office visit in 3 weeks. Coding Level of Care Code Est Pt Level 3 (79884) Diagnoses Chronic constipation K59.09 Sore throat J02.9 Nausea R11.0
[2024-01-22 10:05] VITALS: BP 120/80; PULSE 94; BMI 24.2
== END 2024-01-22 10:43 | disposition home or self-care (01) ==
PROVIDERS: PCP Internal Medicine; Visit Provider Nurse Practitioner
DX: K59.09 Other constipation (principal); J02.9 Acute pharyngitis, unspecified; R11.0 Nausea
CPT/HCPCS: 99213

== ENCOUNTER → 2024-01-22 10:01 | Outpatient (BNVA) | payer OTHER, SELFPAY | PROVIDERS: PCP Internal Medicine; Visit Provider Nurse Practitioner | DX: K59.09 Other constipation (principal); J02.9 Acute pharyngitis, unspecified; R11.0 Nausea | CPT/HCPCS: 99212 ==

== ENCOUNTER 2024-02-19 14:43 | Outpatient (AMB) | payer OTHER, SELFPAY ==
[2024-02-19 14:46] VITALS: BP 119/72; PULSE 105; BMI 24.0
--- NOTE | 2024-02-19 14:46 | MHC.OFFVIS ---
Vital Signs 02/19/24 14:46 Height 5 ft 7 in Weight 153 lb 7.068 oz BMI 24.0 BP 119/72 Blood Pressure Location Rt brachial Position Sitting Pulse 105 H Intake Visit Reasons: 6 weeks f/u Intake Note: Angelica returns to in office follow up of nausea, and constipation. CC: Patient reports that lately she starts to eat and her stomach feels hard and bloated and she feels bleh and feels weird. She also reports that she has been taking the Linzess every day but is not working. 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 Sounds like this was a slow to resolve viral syndrome. She has a new problem that developed with sudden onset of discomfort with stabbing fleeting pain in the bilateral lower quadrants of her abdomen. This was accompanied by fairly severe nausea both at bedtime and in the morning. She can not identify eating any suspect foods such as raw fish undercooked foods or eating out, there are no other known similar sick contacts, and she did not have diarrhea. She moved her Linzess to the evening with a meal and this seemed to help somewhat. The nausea seems to be slowly resolving. At this point I do not think it would be helpful to do any testing. It is likely she picked up another viral syndrome given the time of year and the fact her resistance may be compromised due to just getting over a viral sore throat. At this point I think we should just watch and wait. Of course it is fine for her to take her Linzess in the evening if this better suit her body's timing. Return office visit in 3 weeks. TODAYS VISIT She is not moving her bowels and is having bilateral lower abd pain and bloating. Increase LInzess to 145mcg - or if this does not work consider moving to bisacodyl. We will continue to titrate this to affect her side effect to optimize the patient's condition. ROV 5 weeks. [facility] Medical History Abnormal prominence of scapula control counseling Immunization due Rash Counseling for initiation of control method Folliculitis barbae Knee pain, bilateral Depression screening negative Tinea manuum Physical exam Hospital discharge follow-up Hip pain, bilateral Chronic pain syndrome Osteoarthritis of knees, bilateral Ear infection Surgical History No pertinent past surgical history Family History Father Fibromyalgia Cancer Nerve damage Depression Anxiety Social History Housing: Apartment Alcohol intake: never Patient Tobacco Use Status: Never used Tobacco e-Cigarette/Vaping Use: Never Used Second Hand Smoke Exposure: Yes service: No Current occupational status: employed and student 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 [employer] Current occupational exposures/hazards: No Cognitive needs: No Hearing needs: No Vision needs: No Female Reproductive History Menstrual Age of Menarche: 10 Review of Systems Const Denies fatigue, Denies fever(s), Denies night sweats, Denies poor appetite and Denies weight loss ENT Reports Normal hearing present, Denies dental pain, Denies dysphagia, Denies hearing loss, Denies mouth pain, Denies odynophagia, Denies throat swelling, Denies tongue swelling and Reports other (Dentition adequate) Card Reports no additional complaints Resp Reports no additional complaints GI Details: Denies abdominal pain, Denies melena, Denies bloating, Denies hematochezia, Reports constipation, Reports GI cramping, Denies dysphagia, Denies excessive flatus, Denies early satiety, Denies heartburn, Denies diarrhea, Denies nausea, Denies odynophagia, Denies vomiting and Denies hematemesis Skin/Breast Denies pruritus, Denies lesions, Denies rash and Denies jaundice Neuro Reports Normal hearing present and Denies Abnormal speech present Endo Denies fatigue Aller/Immun Denies throat swelling and Denies tongue swelling Physical Exam Vital Signs: Last Vital Signs Pulse 105 H 02/19/24 14:46 BP 119/72 02/19/24 14:46 BMI result Body Mass Index 24.0 Const General: cooperative, no acute distress, well developed and well groomed Nutritional Appearance: average body habitus and well nourished Orientation/consciousness: oriented to person, oriented to place and oriented to time Limitations: No language barrier HEENT Head: Yes normocephalic and Yes atraumatic Eyes General: appearance normal, both eyes and all related structures Pupils: Equal, round and reactive pupils present Neck Neck: Yes normal visual inspection and Yes no lymphadenopathy Thyroid: Thyroid normal Resp Effort & Inspection: normal respiratory effort and able to speak in complete sentences Auscultation: clear to auscultation bilaterally Cardio Rate: regular rate Rhythm: regular rhythm Heart sounds: Normal, physiologic split S2 sound present Peripheral pulses: radial pulses present and posterior tibial pulses present GI Inspection: No distended and No Abdominal panniculus present Palpation (GI): Soft to palpation, nontender, no guarding, not rigid and No hepatosplenomegaly present Percussion: Yes normal to percussion Auscultation: normal bowel sounds Rectal Exam - Female: deferred Skin General skin exam: no rashes or lesions noted, turgor normal, skin not dry, no jaundice, No spider nevi and no striae Rashes: no rashes Nails: normal Neuro General: oriented to person, oriented to place and oriented to time Cranial nerves: Yes Equal, round and reactive pupils present and Yes Normal hearing present Speech: No Abnormal speech present Extrem General: Yes normal to inspection, No clubbing, No cyanosis and No edema Psych Appearance: grossly normal and well kempt Mental Status: mental status grossly normal Speech and movement: Normal speech and movement present Affect: normal affect Attitude: cooperative Thought process: Normal thought process present and not confabulating Thought content: Normal thought content present Insight: Fair insight present (Psych) Judgement: Fair judgement present (Psych) Assessment & Plan Assessment & Plan (1) Chronic constipation: Code(s): K59.09 - Other constipation Category: Medical Plan She is not moving her bowels and is having bilateral lower abd pain and bloating. Increase LInzess to 145mcg - or if this does not work consider moving to bisacodyl. We will continue to titrate this to affect her side effect to optimize the patient's condition. ROV 5 weeks. Medications: New linaclotide (Linzess) 145 mcg PO QAM 30 caps 6RF K59.09 - Other constipation Discontinued linaclotide Discontinued Reason: Doctor's Order 72 mcg PO QAM 30 caps 6RF K59.09 - Other constipation Coding Level of Care Code Est Pt Level 3 (58644) Diagnoses Chronic constipation K59.09
== END 2024-02-19 15:49 | disposition home or self-care (01) ==
PROVIDERS: PCP Internal Medicine; Visit Provider Nurse Practitioner
DX: K59.09 Other constipation (principal)
CPT/HCPCS: 99213

== ENCOUNTER → 2024-02-19 14:43 | Outpatient (BNVA) | payer OTHER, SELFPAY | PROVIDERS: PCP Internal Medicine; Visit Provider Nurse Practitioner | DX: K59.09 Other constipation (principal); R10.32 Left lower quadrant pain; R10.31 Right lower quadrant pain | CPT/HCPCS: 99212 ==

== ENCOUNTER 2024-05-15 13:30 | Outpatient (AMB) | payer OTHER, SELFPAY ==
--- NOTE | 2024-05-15 13:37 | A.OFFVIS_ITS ---
Intake Visit Reasons: OV- Right shoulder pain Intake Note: Angelica is a 19 year old 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 female who presents today for a follow up of right shoulder pain. Patient reports that she was previously seen with Dr. Mares for her shoulder pain and an MRI was ordered. She did not attend MRI, stating she was nervous. 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 Her pain is located in her shoulder blade and will at times radiate down the back of her arm. Denies numbness or tingling. States the past two days her pain has been constant and getting worse with certain movements. Finds no relief with Tylenol. Allergies No Known Allergies Allergy (Verified 05/15/24 13:42) Medication List - Last Reconciled 05/15/24 by Yoon Chowdhury PA-C desog-e.estradiol/e.estradiol 0.15-0.02 mgx21 /0.01 mg x 5 1 tab PO DAILY ibuprofen 800 mg PO Q8H PRN linaclotide (Linzess) 145 mcg PO QAM loratadine 10 mg PO DAILY PRN HPI HPI OV- Right shoulder pain: Details: 19-year-old female returns to the office today for right shoulder/scapula pain. She was previously seen by Dr. Mares for the right scapular pain. At that time she had an MRI pending from her PCP which she states she did not attend. She states the pain did resolve after she saw Dr. Mares however she just started a new job about a month ago and her pain returned. She states the pain is along the scapular region. There is pain with reaching and lifting at times. Denies numbness or tingling. No injury. [facility] Medical History (Reviewed 01/22/24 @ 10:14 by Erica Rawls [facility]) Abnormal prominence of scapula control counseling Immunization due Rash Counseling for initiation of control method Folliculitis barbae Knee pain, bilateral Depression screening negative Tinea manuum Physical exam Hospital discharge follow-up Hip pain, bilateral Chronic pain syndrome Osteoarthritis of knees, bilateral Ear infection Surgical History No pertinent past surgical history Family History (Reviewed 01/22/24 @ 10:14 by Erica Rawls [facility]) Father Fibromyalgia Cancer Nerve damage Depression Anxiety Social History (Updated 05/15/24 @ 13:48 by Alberta Cooper Mandy) Housing: Apartment Alcohol intake: never Patient Tobacco Use Status: Never used Tobacco e-Cigarette/Vaping Use: Never Used Second Hand Smoke Exposure: Yes service: No Current occupational status: employed and student 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 No scapular winging. Full range of motion in all planes. No tenderness along the para scapular muscles. She does have tenderness along the inferior lateral border of the scapula into the ribcage. This is not worse with any type of motion or strength testing of the shoulder. There is no scapular protraction or retraction present. Positive Ramos Neurovascularly intact. Assessment & Plan Assessment & Plan (1) Dyskinesis of right scapula: Code(s): M25.311 - Other instability, right shoulder Category: Medical Plan: I did discuss the benefits of physical therapy to work on scapular mechanics along with rotator cuff strengthening. I explained how this is likely some thing that is occurring due to some deconditioning of the shoulder girdle region and physical therapy would likely help to improve her function and lessen her pain. If she continues to have discomfort over the next 4-6 weeks she will contact our office and we can discuss proceeding with an MRI otherwise follow up as needed. Orders: Orders PT Evaluation and Treatment Today M25.311 - Other instability, right shoulder Coding Level of Care Code Est Pt Level 3 (90267) Complex EM visit Add On G2211 Diagnoses Dyskinesis of right scapula M25.311
== END 2024-05-15 13:57 | disposition home or self-care (01) ==
PROVIDERS: PCP Internal Medicine; Visit Provider Physician Assistant
DX: M25.311 Other instability, right shoulder (principal)
CPT/HCPCS: 99213; G2211

== ENCOUNTER → 2024-05-15 13:30 | Outpatient (BNVA) | payer OTHER, SELFPAY | PROVIDERS: PCP Internal Medicine; Visit Provider Physician Assistant | DX: M25.311 Other instability, right shoulder (principal) | CPT/HCPCS: 99212 ==

== ENCOUNTER 2024-11-20 15:34 | Outpatient (AMB) | payer OTHER, SELFPAY ==
--- NOTE | 2024-11-20 15:38 | MHC.OFFVIS ---
Vital Signs 11/20/24 15:39 Height 5 ft 7 in Weight 158 lb 11.725 oz BMI 24.9 BP 105/66 Blood Pressure Location Lt brachial Position Sitting Pulse 84 Intake Visit Reasons: f/u Constipation Intake Note: Angelica presents in the office as a follow up for constipation. CC: She states taking linzess has been an issue - she states she drinks coconut water or OJ with the pulp. Sometimes she has a fluid or mucus that comes out like a BM but she is not actually passing a stool. Allergies No Known Allergies Allergy (Verified 11/20/24 15:39) HPI HPI f/u Constipation: Details: Assessment & Plan (1) Chronic constipation: Code(s): K59.09 - Other constipation Category: Medical Plan She is not moving her bowels and is having bilateral lower abd pain and bloating. Increase LInzess to 145mcg - or if this does not work consider moving to bisacodyl. We will continue to titrate this to affect her side effect to optimize the patient's condition. ROV 5 weeks. Medications: New linaclotide (Linzess) 145 mcg PO QAM 30 caps 6RF K59.09 - Other constipation Discontinued linaclotide Discontinued Reason: Doctor's Order 72 mcg PO QAM 30 caps 6RF K59.09 - Other constipation TODAY'S VISIT She had to stop using the Linzess r/t her work schedule. Then she also mis placed one of the fills. She is hoping to become less busy at work now and woiuld like to re start the Linzess, she opts for the 72mcg dose. If this is causing her to have to move her bowels all day then we should consider the 145mcg dose. SHe is using fruits to regulate her bowels now tih mixed success. She also sees mucus - reassured this is not an ominous sign. ROV 6 weeks. [facility]LY [facility] Medical History Abnormal prominence of scapula control counseling Immunization due Rash Counseling for initiation of control method Folliculitis barbae Knee pain, bilateral Depression screening negative Tinea manuum Physical exam Hospital discharge follow-up Hip pain, bilateral Chronic pain syndrome Osteoarthritis of knees, bilateral Ear infection Surgical History No pertinent past surgical history Family History Father Fibromyalgia Cancer Nerve damage Depression Anxiety Social History Housing: Apartment Alcohol intake: never Patient Tobacco Use Status: Never used Tobacco e-Cigarette/Vaping Use: Never Used Second Hand Smoke Exposure: Yes service: No Current occupational status: employed and student 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, 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 Current occupational exposures/hazards: No Cognitive needs: No Hearing needs: No Vision needs: No Female Reproductive History Menstrual Age of Menarche: 10 Review of Systems Const Denies fatigue, Denies fever(s), Denies night sweats, Denies poor appetite and Denies weight loss ENT Reports Normal hearing present, Denies dental pain, Denies dysphagia, Denies hearing loss, Denies mouth pain, Denies odynophagia, Denies throat swelling, Denies tongue swelling and Reports other (Dentition adequate) Card Reports no additional complaints Resp Reports no additional complaints GI Details: Denies abdominal pain, Denies melena, Denies bloating, Denies hematochezia, Reports constipation, Denies GI cramping, Denies dysphagia, Denies excessive flatus, Denies early satiety, Denies heartburn, Denies diarrhea, Denies nausea, Denies odynophagia, Denies vomiting and Denies hematemesis Skin/Breast Denies pruritus, Denies lesions, Denies rash and Denies jaundice Neuro Reports Normal hearing present and Denies Abnormal speech present Endo Denies fatigue Aller/Immun Denies throat swelling and Denies tongue swelling Physical Exam Vital Signs: Last Vital Signs Pulse 84 11/20/24 15:39 BP 105/66 11/20/24 15:39 BMI result Body Mass Index 24.9 Const General: cooperative, no acute distress, well developed and well groomed Nutritional Appearance: well nourished Orientation/consciousness: oriented to person, oriented to place and oriented to time Limitations: No language barrier HEENT Head: Yes normocephalic and Yes atraumatic Eyes General: appearance normal, both eyes and all related structures Pupils: Equal, round and reactive pupils present Neck Neck: Yes normal visual inspection and Yes no lymphadenopathy Thyroid: Thyroid normal Resp Effort & Inspection: normal respiratory effort and able to speak in complete sentences Auscultation: clear to auscultation bilaterally Cardio Rate: regular rate Rhythm: regular rhythm Heart sounds: Normal, physiologic split S2 sound present Peripheral pulses: radial pulses present and posterior tibial pulses present GI Inspection: No distended and No Abdominal panniculus present Palpation (GI): Soft to palpation, nontender, no guarding, not rigid and No hepatosplenomegaly present Percussion: Yes normal to percussion Auscultation: normal bowel sounds Rectal Exam - Female: deferred Skin General skin exam: no rashes or lesions noted, turgor normal, skin not dry, no jaundice, No spider nevi and no striae Rashes: no rashes Nails: normal Neuro General: oriented to person, oriented to place and oriented to time Cranial nerves: Yes Equal, round and reactive pupils present and Yes Normal hearing present Speech: No Abnormal speech present Extrem General: Yes normal to inspection, No clubbing, No cyanosis and No edema Psych Appearance: grossly normal and well kempt Mental Status: mental status grossly normal Speech and movement: Normal speech and movement present Affect: normal affect Attitude: cooperative Thought process: Normal thought process present and not confabulating Thought content: Normal thought content present Insight: Fair insight present (Psych) Judgement: Fair judgement present (Psych) Assessment & Plan Assessment & Plan (1) Chronic constipation: Code(s): K59.09 - Other constipation Category: Medical Plan She had to stop using the Linzess r/t her work schedule. Then she also mis placed one of the fills. She is hoping to become less busy at work now and woiuld like to re start the Linzess, she opts for the 72mcg dose. If this is causing her to have to move her bowels all day then we should consider the 145mcg dose. SHe is using fruits to regulate her bowels now tih mixed success. She also sees mucus - reassured this is not an ominous sign. ROV 6 weeks. Medications: New linaclotide (Linzess) 72 mcg PO QAM 30 caps 6RF K59.09 - Other constipation Coding Level of Care Code Est Pt Level 3 (46977) Diagnoses Chronic constipation K59.09
[2024-11-20 15:39] VITALS: BP 105/66; PULSE 84; BMI 24.9
== END 2024-11-20 15:59 | disposition home or self-care (01) ==
LOC: HO.HGI 15:34
PROVIDERS: PCP Internal Medicine; Visit Provider Nurse Practitioner
DX: K59.09 Other constipation (principal)
CPT/HCPCS: 99213

== ENCOUNTER → 2024-11-20 15:34 | Outpatient (BNVA) | payer OTHER, SELFPAY | PROVIDERS: PCP Internal Medicine; Visit Provider Nurse Practitioner | DX: K59.09 Other constipation (principal) | CPT/HCPCS: 99212 ==

== ENCOUNTER 2025-01-12 11:13 | Emergency (ER) | payer OTHER, SELFPAY ==
--- NOTE | ~2025-01-12 | XR_ITS ---
EXAMINATION: XR KNEE, RIGHT CLINICAL INFORMATION: pain, injury COMPARISON: July 20, 2021 TECHNIQUE: AP, oblique and lateral views of the right knee. FINDINGS: No acute cortical disruption or malalignment. No lytic or blastic lesions. No suprapatellar bursa joint effusion. No soft tissue calcification. XR/XR knee RT 3V IMPRESSION: No acute fracture or dislocation. No gross bone lesion. No joint effusion, suprapatellar bursa.. Electronically signed by: Tanner Do MD 01/12/2025 01:31 PM EDT
--- NOTE | ~2025-01-12 | XR_ITS ---
EXAMINATION: XR ANKLE 3 OR MORE VIEWS RIGHT, XR FOOT 3 OR MORE VIEWS RIGHT HISTORY: pain, injury COMPARISON: Comparison is made with the prior examination of the right foot dated 08/21/2022. FINDINGS: Six views of the right foot and ankle are submitted. Osseous mineralization is normal. There is no fracture or dislocation. The joint spaces are preserved. The soft tissues are unremarkable. XR/XR ankle RT min 3V IMPRESSION: Unremarkable examination of the right foot and ankle. Electronically signed by: Samson Licea MD 01/12/2025 01:29 PM EDT
--- NOTE | ~2025-01-12 | XR_ITS ---
EXAMINATION: XR LUMBOSACRAL SPINE CLINICAL INFORMATION: pain, right radiculopathy COMPARISON: June 27, 2021. TECHNIQUE: AP and lateral views. FINDINGS: Castellvi type I sacralization labeled S1. No acute cortical disruption or malalignment. No lytic or blastic lesions. Mild S-shaped curvature of the lumbar spine. No lytic or blastic lesions. XR/XR lumbar spine 2-3V IMPRESSION: Mild scoliosis. No gross change. Electronically signed by: Tanner Do MD 01/12/2025 01:29 PM EDT
--- NOTE | ~2025-01-12 | US_ITS ---
EXAMINATION: US TRIPLEX LOWER EXTREMITY, RIGHT CLINICAL INFORMATION: Pain, right lower extremity. COMPARISON: None available. TECHNIQUE: Color-flow triplex imaging with spectral analysis and compression Doppler were performed on the right lower extremity. FINDINGS: Respiratory variation, normal compression and augmented flow are demonstrated throughout the interrogated right common femoral vein, superficial femoral vein, profunda femoral vein, popliteal vein and midcalf peroneal and posterior tibial venous segments. There is no Decker's cyst. US/US venous duplex LE RT IMPRESSION: No acute deep venous thrombosis interrogated veins, right lower extremity. Negative for DVT. Electronically signed by: Tanner Do MD 01/12/2025 03:20 PM EDT
--- NOTE | ~2025-01-12 | XR_ITS ---
EXAMINATION: XR ANKLE 3 OR MORE VIEWS RIGHT, XR FOOT 3 OR MORE VIEWS RIGHT HISTORY: pain, injury COMPARISON: Comparison is made with the prior examination of the right foot dated 08/21/2022. FINDINGS: Six views of the right foot and ankle are submitted. Osseous mineralization is normal. There is no fracture or dislocation. The joint spaces are preserved. The soft tissues are unremarkable. XR/XR foot RT min 3V IMPRESSION: Unremarkable examination of the right foot and ankle. Electronically signed by: Samson Licea MD 01/12/2025 01:29 PM EDT
[2025-01-12 11:28] VITALS: BP 129/58; PULSE 88; RESP 16; TEMP 36.9; O2SAT 98; BMI 29.9
--- NOTE | 2025-01-12 11:28 | ED.GENADULT ---
HPI - General Adult General Chief complaint: Extremity Injury, Lower Stated complaint: work inj 01/10, leg pain Time Seen by Provider: 01/12/25 12:51 Source: patient and RN notes reviewed Mode of arrival: ambulatory Limitations: no limitations History of Present Illness ED Provider: Kerry Cisneros PA-C HPI narrative: This is a 19-year-old female who presents emergency department with concerns of right leg pain x 4 days. Patient states that on Sunday she was at work and she placed a Pallet down and when she went to stand up from a squatting position she felt a popping sensation in her right knee and had pain since. Patient states that over the last couple of days she has had progressive pain that is now in her right foot and ankle, and also reports some low back pain. She denies any numbness, tingling or weakness. Pain worsens with weight-bearing. She took ibuprofen several days ago, states that this provided her with some relief. No history of similar symptoms in the past. She does report that she has a history of knee problems and states that she previously saw physical therapy for this several years ago. No history of any surgical interventions for her knee. Denies any urinary or bowel retention or incontinence. No saddle anesthesia. No history of IVDA. She denies any other complaints or concerns at this time. MD complaint: Leg pain Pain Consistency: constant Relieving factors: none Exacerbating factors: none Associated symptoms: denies other symptoms Treatments prior to arrival: none Related Data Home Medications ?Medication ?Instructions ?Recorded ?Confirmed ibuprofen 800 mg tablet 800 mg PO Q8H PRN 09/14/23 12/11/23 Previous Rx's ?Medication ?Instructions ?Recorded desogestrel-e.estradiol 0.15 1 tab PO DAILY #84 tabs 12/11/23 mg-0.02 mg(21)/e.estrad 0.01 mg(5) tablet linaclotide 72 mcg capsule 72 mcg PO QAM #30 caps 11/20/24 (Linzess) acetaminophen 500 mg tablet 1,000 mg (2 x 500 mg) PO QID PRN 01/12/25 (Tylenol Extra Strength) pain #30 tabs ibuprofen 600 mg tablet 600 mg PO Q6H PRN pain #30 tabs 01/12/25 Allergies Allergy/AdvReac Type Severity Reaction Status Date / Time No Known Allergies Allergy Verified 01/12/25 11:29 Review of Systems Review of Systems: Constitutional : No Fever, No Chills ENT/Mouth : No sore throat, No Rhinorrhea Eyes: No Eye Pain, No Swelling, No Redness Cardiovascular : No Chest Pain, No SOB Respiratory : No Cough, No Sputum Gastrointestinal : No Nausea, No Vomiting, No Diarrhea, No abdominal Pain Genitourinary : No Dysuria, No Hematuria Musculoskeletal : No joint pain, No Myalgias, No Joint Swelling Skin : No Skin Lesions Neuro : No Weakness, No Numbness, No Headache All other systems reviewed and are negative Yes all other systems are reviewed and are negative Constitutional: Constitutional: Reports as per HPI Eyes: Eyes: Reports as per HPI, Denies change in vision and Denies eye discharge ENT: Reports system reviewed and no additional complaints, except as documented, Reports as per HPI, Reports Normal hearing present and Denies facial pain Cardiovascular: Cardiovascular: Reports as per HPI and Denies chest pain Respiratory: Respiratory: Reports as per HPI and Denies cough Gastrointestinal: Gastrointestinal: Reports as per HPI, Reports no additional gastrointestinal complaints, Denies abdominal pain, Denies diarrhea, Denies nausea and Denies vomiting Genitourinary: Genitourinary: Reports no additional female genitourinary complaints and Reports as per HPI Musculoskeletal: Musculoskeletal: Reports no additional musculoskeletal complaints and Reports as per HPI Integumentary/Breasts: Skin/Breast: Reports system reviewed and no additional complaints, except as docu, Reports as per HPI, Reports erythema, Denies rash and Denies wounds Neurologic: Reports Normal hearing present Psychiatric: Psychiatric: Reports no additional psychiatric complaints and Reports as per HPI Endocrine: Endocrine: Reports no additional endocrine complaints and Reports as per HPI Hematologic/Lymphatic: Hematologic/Lymphatic: Reports no additional hematologic/lymphatic complaints and Reports as per HPI Allergic/Immunologic: Allergic/Immunologic: Reports no additional allergic/immunologic complaints and Reports as per HPI [facility] Past Medical History Attestation statement: The following information was validated with the patient. Medical History Abnormal prominence of scapula control counseling Immunization due Rash Counseling for initiation of control method Folliculitis barbae Knee pain, bilateral Depression screening negative Tinea manuum Physical exam Hospital discharge follow-up Hip pain, bilateral Chronic pain syndrome Osteoarthritis of knees, bilateral Ear infection Surgical History No pertinent past surgical history Family History Family History Father Fibromyalgia Cancer Nerve damage Depression Anxiety Social History Social History Housing: Apartment Alcohol intake: never Patient Tobacco Use Status: Never used Tobacco e-Cigarette/Vaping Use: Never Used Second Hand Smoke Exposure: Yes Advance Directives: No Advance Directives Information Provided: No Do you have a plan to hurt others: No Plan service: No Current occupational status: employed and student 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, 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 Current occupational exposures/hazards: No Cognitive needs: No Hearing needs: No Vision needs: No Physical Exam ED Vital Signs: Vital Signs - 24 hr 01/12/25 11:28 01/12/25 16:34 Temperature 98.5 F 98.5 F Pulse Rate 88 88 Respiratory Rate 16 16 Blood Pressure 129/58 L 129/58 L Pulse Oximetry 98 98 Oxygen Delivery Method Room Air Room Air BMI result Body Mass Index 29.9 Const General: cooperative, comfortable and no acute distress Orientation/consciousness: patient oriented x3 Limitations: no limitations HENMT Head: Yes normal to inspection, Yes normocephalic and Yes atraumatic Ears: hearing grossly normal bilaterally General nose exam: Normal external nose present Face and sinus: Yes normal facial exam Mouth: Normal oral and palatal mucosa present, oropharynx normal and moist mucous membranes Throat: Yes posterior oropharynx normal Eyes General: appearance normal, both eyes and all related structures Eyelids: Yes eyelids normal Conjunctivae: conjunctivae normal Sclerae: sclerae normal Pupils: Equal, round and reactive pupils present EOM: EOMs intact bilaterally Neck Neck: Yes normal visual inspection, Yes full ROM and Yes no lymphadenopathy Lymphatic: no lymphadenopathy noted Chest Chest palpation & inspection: normal inspection of the chest Resp Effort & Inspection: normal respiratory effort and able to speak in complete sentences Auscultation: clear to auscultation bilaterally Cardio Rate: regular rate Rhythm: regular rhythm Heart sounds: S1 normal heart sound present and S2 normal heart sound present GI Inspection: Yes normal to inspection Back/Spine/Pelvis Other: Mild tenderness palpation along the lumbar spine, as well as the lumbar paraspinous muscles. Ambulatory with steady gait, strength 5/5 in lower extremities Skin General skin exam: no rashes or lesions noted Trauma: no lacerations or abrasions Wounds: no wounds Neuro General: patient oriented x3 and moves all extremities Cranial nerves: Yes Equal, round and reactive pupils present and Yes Normal hearing present Extrem Other: Right leg is well perfused, warm, no obvious bony deformity or swelling. Patient has tenderness palpation along the medial malleolus. Full ROM. Right foot is nontender. Patient has mild calf tenderness on the right, no pedal edema. Achilles tendon is intact. Patient does have tenderness palpation along the lumbar midline spine General: Yes normal to inspection Right upper extremity: normal to inspection Left upper extremity: normal to inspection Left lower extremity: normal to inspection Course Course Course Narrative: Rapid medical examination performed in triage by Jelly Murphy PA-C. Patient is a 19 year old assigned female at presenting to the emergency department with right knee, foot, and ankle pain after an injury at work. Detailed physical exam and review of systems are deferred to the practice clinician. Imaging ordered. Patient placed back in the waiting room pending room availability and results. Medical Decision Making Medical Decision Making [facility] Narrative: This is a 19-year-old female who presents emergency department with complaints of right leg pain since Sunday. On arrival, vital signs within normal limits. She is speaking full sentences under no acute distress. She is ambulatory. Patient had a popping sensation in her right knee and has had pain ever since. Pain worsens with weight-bearing. Patient also reporting back pain that is radiating down her right leg. She states that over the last several days pain has now progressed into her right ankle and foot. She is on control. No recent travel, surgery, or hospitalizations. She does have mild tenderness palpation along the right calf. Will obtain x-rays that were previously ordered by the triage provider, will also order a lumbar spine x-ray as this could be a presentation of lumbar radiculopathy. Ultrasound also obtained to rule out DVT. Patient declines wanting any pain medication at this time. We will continue to closely monitor. Patient has no red flag back symptoms, no saddle anesthesia. No urinary or bowel retention or incontinence. 5:32 PM 01/12/2025 (Kerry Cisneros PA-C): X-rays unremarkable. Discussed findings with patient. Symptoms consistent with sprain/strain. She may also have touch of lumbar radiculopathy as she has pain in her low back as well as leg pain. No DVT on ultrasound. Given R.I.C.E techniques. Advised to follow-up with ortho if needed. She is ambulatory with steady gait. Given strict return precautions, patient stable for discharge. Patient understands and agrees with plan. Stable for discharge Differential Diagnosis Differential Diagnoses: The differential diagnosis associated with the presentation includes Lumbar radiculopathy, knee sprain, strain, contusion, fracture Lab Data MDM Lab Attestation statement: I reviewed the patient's lab results. Negative hCG Labs: Lab Results 01/12/25 Range/Units 11:58 Hold Purple Top SEE NOTE Beta HCG, Quant < 2 mIU/mL Radiology Impression Discussion of test interpretation with radiology: I have reviewed the radiologist's reading. Radiologist Impression: CLINICAL INFORMATION: Pain, right lower extremity. COMPARISON: None available. TECHNIQUE: Color-flow triplex imaging with spectral analysis and compression Doppler were performed on the right lower extremity. FINDINGS: Respiratory variation, normal compression and augmented flow are demonstrated throughout the interrogated right common femoral vein, superficial femoral vein, profunda femoral vein, popliteal vein and midcalf peroneal and posterior tibial venous segments. There is no Decker's cyst. US/US venous duplex LE RT IMPRESSION: No acute deep venous thrombosis interrogated veins, right lower extremity. Negative for DVT. Electronically signed by: Tanner Do MD 01/12/2025 03:20 PM EDT Dictated By: Tanner Chacon MD EXAMINATION: XR ANKLE 3 OR MORE VIEWS RIGHT, XR FOOT 3 OR MORE VIEWS RIGHT HISTORY: pain, injury COMPARISON: Comparison is made with the prior examination of the right foot dated 08/21/2022. FINDINGS: Six views of the right foot and ankle are submitted. Osseous mineralization is normal. There is no fracture or dislocation. The joint spaces are preserved. The soft tissues are unremarkable. XR/XR ankle RT min 3V IMPRESSION: Unremarkable examination of the right foot and ankle. Electronically signed by: Samson Licea MD 01/12/2025 01:29 PM EDT RP Dictated By: Samson Licea MD XR/XR lumbar spine 2-3V IMPRESSION: Mild scoliosis. No gross change. Electronically signed by: Tanner Do MD 01/12/2025 01:29 PM EDT RP Dictated By: Tanner Chacon MD TECHNIQUE: AP, oblique and lateral views of the right knee. FINDINGS: No acute cortical disruption or malalignment. No lytic or blastic lesions. No suprapatellar bursa joint effusion. No soft tissue calcification. XR/XR knee RT 3V IMPRESSION: No acute fracture or dislocation. No gross bone lesion. No joint effusion, suprapatellar bursa.. Electronically signed by: Tanner Do MD 01/12/2025 01:31 PM EDT RP Dictated By: Tanner Chacon MD Discharge Plan Discharge Clinical Impression: Leg pain Patient Disposition: Home, Self-Care Instructions: Leg Pain (ED) Additional Instructions: You were seen in the emergency department due to pain in your right knee, and right foot and ankle. Your x-rays do not show any injury to your bone. Your ultrasound does not show a blood clot. Please alternate between ibuprofen and or Tylenol as needed for pain and symptoms. Rest, ice, and elevate. Please follow-up with your primary care physician regarding this visit. If you continue to have pain in your leg, please consult with the internet ecommerce specialist, however await several weeks for this to occur as your symptoms may improve with rest. Prescriptions: New ibuprofen 600 mg tablet 600 mg PO Q6H PRN (Reason: pain) Qty: 30 0RF acetaminophen [Tylenol Extra Strength] 500 mg tablet 1,000 mg PO QID PRN (Reason: pain) Qty: 30 0RF No Action ibuprofen 800 mg tablet 800 mg PO Q8H PRN Linzess 72 mcg capsule 72 mcg PO QAM Qty: 30 6RF desog-e.estradiol/e.estradiol 0.15-0.02 mgx21 /0.01 mg x 5 tablet 1 tab PO DAILY Qty: 84 4RF Referrals: [facility] [Provider Group] Stand Alone Forms: Work/School Release Interventions: ED Discharge Assessment Last Done: 01/12/25 16:34 Discharge Date/Time: 01/12/25 16:34 Print Language: Setswana
[2025-01-12 16:34] VITALS: BP 129/58; PULSE 88; RESP 16; TEMP 36.9; O2SAT 98
== END 2025-01-12 16:34 | disposition home or self-care (01) ==
PROVIDERS: Physician Assistant Medical; Emergency Provider Emergency Medicine; PCP Internal Medicine
DX: S89.91XA Unspecified injury of right lower leg, initial encounter (principal); X58.XXXA Exposure to other specified factors, initial encounter; Y93.89 Activity, other specified; Y92.89 Other specified places as the place of occurrence of the external cause; Y99.0 Civilian activity done for income or pay; M79.604 Pain in right leg
CPT/HCPCS: 36415; 72100; 73562; 73610; 73630; 84702; 93971; 99282; 99284

== ENCOUNTER → 2025-01-12 11:29 | Outpatient (BNV) | payer OTHER, SELFPAY | PROVIDERS: Emergency Provider Emergency Medicine; PCP Internal Medicine; Visit Provider Radiology Diagnostic Radiology | DX: M79.661 Pain in right lower leg (principal); M54.16 Radiculopathy, lumbar region; M54.50 Low back pain, unspecified; M25.561 Pain in right knee; M25.571 Pain in right ankle and joints of right foot | CPT/HCPCS: 72100; 73562; 73610; 73630; 93971 ==

== ENCOUNTER 2025-01-26 16:54 | Emergency (ER) | payer OTHER, SELFPAY ==
--- NOTE | ~2025-01-26 | XR_ITS ---
CLINICAL HISTORY: R hand crush injury 3 view right hand Comparison: None provided Findings: Bones intact. No dislocations. No erosions. No radiopaque foreign body. IMPRESSION: 1. No acute findings This document has been electronically signed by: Bianca Bernardo MD on 01/26/2025 18:21:09
[2025-01-26 17:10] VITALS: BP 119/73; PULSE 72; RESP 16; TEMP 36.1; O2SAT 98; BMI 22.6
--- NOTE | 2025-01-26 17:20 | ED_ITS ---
HPI - Extremity Injury (Upper) General Chief Complaint: Extremity Injury, Upper Stated Complaint: wc injury, rt hand Time Seen by Provider: 01/26/25 20:11 Source: patient Limitations: no limitations History of Present Illness ED Provider: Kathie Mena PA-C HPI narrative: 19-year-old female presents with right hand pain. Patient states she caught her hand between a Pallet and a metal pole, now with bruising over the dorsum of the right hand. Pain with flexion and extension of each digit. Related Data Home Medications ?Medication ?Instructions ?Recorded ?Confirmed ibuprofen 800 mg tablet 800 mg PO Q8H PRN 09/14/23 0 12/11/23 Previous Rx's ?Medication ?Instructions ?Recorded desogestrel-e.estradiol 0.15 1 tab PO DAILY #84 tabs 0 12/11/23 mg-0.02 mg(21)/e.estrad 0.01 mg(5) tablet linaclotide 72 mcg capsule 72 mcg PO QAM #30 caps 11/04 11/28 (Linzess) acetaminophen 500 mg tablet 1,000 mg (2 x 500 mg) PO Q ID PRN 01/12/25 (Tylenol Extra Strength) pain #30 tabs ibuprofen 600 mg tablet 600 mg PO Q6H PRN pain #30 t abs 01/12/25 Allergies Allergy/AdvReac Type Severity Reaction Status Date / Time No Known Allergies Allergy Verified 01/26/25 17:19 Review of Systems Review of Systems: Yes all other systems are reviewed and are negative Constitutional: Constitutional: Denies fatigue and Denies fever(s) Musculoskeletal: Musculoskeletal: Reports arthralgias and Reports joint swelling Endocrine: Endocrine: Denies fatigue PMF Past Medical History Attestation statement: The following information was validated with the patient. Medical History Abnormal prominence of scapula control counseling Immunization due Rash Counseling for initiation of control method Folliculitis barbae Knee pain, bilateral Depression screening negative Tinea manuum Physical exam Hospital discharge follow-up Hip pain, bilateral Chronic pain syndrome Osteoarthritis of knees, bilateral Ear infection Surgical History No pertinent past surgical history Family History Family History Father Fibromyalgia Cancer Nerve damage Depression Anxiety Social History Social History Housing: Apartment Alcohol intake: never Patient Tobacco Use Status: Never used Tobacco e-Cigarette/Vaping Use: Never Used Second Hand Smoke Exposure: Yes Advance Directives: No Advance Directives Information Provided: No service: No Current occupational status: employed and student 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, 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 Current occupational exposures/hazards: No Cognitive needs: No Hearing needs: No Vision needs: No Physical Exam Vital Signs: Vital Signs: Last Vital Signs Temp 97.0 F 01/26/25 17:10 Pulse 72 01/26/25 17:10 Resp 16 01/26/25 17:10 BP 119/73 01/26/25 17:10 Pulse Ox 98 01/26/25 17:10 O2 Del Method Room Air 01/26/25 17:10 BMI result Body Mass Index 22.6 Const: Other: Alert Orientation/consciousness: patient oriented x3 Resp: Effort & Inspection: normal respiratory effort Cardio: Other: Normal peripheral perfusion Skin: Other: Warm dry no rash Neuro: General: patient oriented x3, gait normal, no focal motor deficits and CN's II-XI intact bilaterally Extrem: Other: Contusion noted over dorsum of right hand mild swelling and ecchymosis Psych: Other: Cooperative Course Course Course Narrative: This is a Rapid Medical Examination (RME) performed by Thang Jamil PA-C in triage. Full HPI, ROS, assessment and treatment plan per primary provider in the Main ED. Hx: 19 yo 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 F here from work for eval of right hand crush injury sustained on job around 0 today. reports hand became caught between a pallet and a metal pole. pain/swelling to right hand. Plan: xrs Medical Decision Making Medical Decision Making MDM Narrative: 19-year-old female presents with right hand pain. Patient states she caught her hand between a Pallet and a metal pole, now with bruising over the dorsum of the right hand. Pain with flexion and extension of each digit. No chronic issues History: Per patient I have considered the following differential diagnoses: Fracture, dislocation, contusion, sprain Plan: X-ray ordered from triage there was no fracture or dislocation she has a contusion we will send with home care instructions I have independently reviewed the following tests: X-ray right hand:3 view right hand Comparison: None provided Findings: Bones intact. No dislocations. No erosions. No radiopaque foreign body. IMPRESSION: 1. No acute findings Differential Diagnosis Differential Diagnoses: The differential diagnosis associated with the presenta tion includes See medical decision-making Admission/Observation Consideration of admission/observation: Escalation of care including admission/observation considered Not applicable Radiology Impression Discussion of test interpretation with radiology: I have reviewed the radiologist's reading. Discharge Plan Discharge Clinical Impression: Contusion of hand, right Patient Disposition: Home, Self-Care Instructions: Contusion in Adults (ED), P.R.I.C.E. Treatment (ED) Additional Instructions: The x-ray of the hand was negative for fracture or dislocation, you sustained a contusion. See home care instructions. Follow up with primary care as needed. Prescriptions: No Action ibuprofen 600 mg tablet 600 mg PO Q6H PRN (Reason: pain) Qty: 30 0RF acetaminophen [Tylenol Extra Strength] 500 mg tablet 1,000 mg PO QID PRN (Reason: pain) Qty: 30 0RF ibuprofen 800 mg tablet 800 mg PO Q8H PRN Linzess 72 mcg capsule 72 mcg PO QAM Qty: 30 6RF desog-e.estradiol/e.estradiol 0.15-0.02 mgx21 /0.01 mg x 5 tablet 1 tab PO DAILY Qty: 84 4RF Stand Alone Forms: Work/School Release Print Language: Jordanian
[2025-01-26 20:44] VITALS: BP 119/73; PULSE 72; RESP 16; TEMP 36.1; O2SAT 98
== END 2025-01-26 20:45 | disposition home or self-care (01) ==
PROVIDERS: Emergency Provider Emergency Medicine; PCP Internal Medicine
DX: S60.221A Contusion of right hand, initial encounter (principal); M79.641 Pain in right hand; W31.89XA Contact with other specified machinery, initial encounter; Y93.89 Activity, other specified; Y92.9 Unspecified place or not applicable; Y99.9 Unspecified external cause status
CPT/HCPCS: 73130; 99282; 99283

== ENCOUNTER → 2025-01-26 17:19 | Outpatient (BNV) | payer OTHER, SELFPAY | PROVIDERS: PCP Internal Medicine; Visit Provider Radiology Diagnostic Radiology | DX: S67.21XA Crushing injury of right hand, initial encounter (principal) | CPT/HCPCS: 73130 ==

== ENCOUNTER 2025-02-09 13:24 | Outpatient (AMB) | payer OTHER, SELFPAY ==
--- NOTE | 2025-02-09 13:34 | A.OFFPC_ITS ---
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: No Accompanied by: Self / Same As Patient Allergies No Known Allergies Allergy (Verified 02/09/25 13:45) Medication List - Last Reconciled 02/09/25 by MAIN Foster acetaminophen (Tylenol Extra Strength) 1,000 mg (2 x 500 mg) PO QID PRN ibuprofen 600 mg PO Q6H PRN ibuprofen 800 mg PO Q8H PRN linaclotide (Linzess) 72 mcg PO QAM Tobacco use date assessed: 02/09/25 Dental Screening Dental Screen Date: 02/09/25 Did you have a dental visit in the last 12 months?: No Did you have a dental problem in the last 6 months where you did not have access to dental care?: No Was dental information given to patient?: No HPI [facility]-Work injury Rt hand pain HPI Details The patient is a 19-year-old female presenting for evaluation for work-related injury to right hand. The patient was seen in [facility] emergency room on 01/26/2025. There an x-ray of her hand was completed with no acute findings. It was reported that her hand was caught between a pallet and a metal pole. It was also reported that she was having pain with flexion and extension in the fingers of the right hand. Reports that this happened 3 hours into her shift; she was not sure if the need medical attention or not. The dorsal portion of her hand continues to be swollen and discolored, pain with palpation. +ROM, slightly weaker in the right hand. The patient is working 5 days a week. [facility] Medical History Abnormal prominence of scapula control counseling Immunization due Rash Counseling for initiation of control method Folliculitis barbae Knee pain, bilateral Depression screening negative Tinea manuum Physical exam Hospital discharge follow-up Hip pain, bilateral Chronic pain syndrome Osteoarthritis of knees, bilateral Ear infection Surgical History No pertinent past surgical history Family History Father Fibromyalgia Cancer Nerve damage Depression Anxiety Social History Housing: Apartment Alcohol intake: never Patient Tobacco Use Status: Never used Tobacco e-Cigarette/Vaping Use: Never Used Second Hand Smoke Exposure: Yes service: No Current occupational status: employed and student 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 1. Little interest or pleasure in doing things: not at all 2. Feeling down, depressed, or hopeless: not at all 3. Trouble falling or staying asleep, or sleeping too much: not at all 4. Feeling tired or having little energy: not at all 5. Poor appetite or overeating: not at all 6. Feeling bad about yourself - or that you are a failure or have let yourself or your family down: not at all 7. Trouble concentrating on things, such as reading the newspaper or watching television: not at all 8. Moving or speaking so slowly that other people could have noticed. Or the opposite - being so fidgety or restless that you have been moving around a lot more than usual: not at all 9. Thoughts that you would be better off or of hurting yourself in some way: not at all Total score: 0 Source: Developed by Drs. Samson Trent, Iwona Gifford, Ike Pisano and colleagues, with an educational julio from [employer]. Thrive Questionnaire Date Thrive assessed: 02/02/25 I am a: Patient What is your living situation today?: I choose not to answer this question Within the past 12 months, did the food you bought not last and you didn't have the money to get more?: I choose not to answer this question Within the past 12 months, did you worry whether your food would run out before you got money to buy more?: I choose not to answer this question Do you have trouble paying for medicines?: I choose not to answer this question Do you have trouble getting transportation to medical appointments?: I choose not to answer this question Do you have trouble paying your heating and electricity bill?: I choose not to answer this question Do you have trouble taking care of your child, family member or friend?: I choose not to answer this question Do you have trouble with day-to-day activities such as bathing, preparing meals, shopping, managing finances, etc.?: I choose not to answer this question Are you currently unemployed and looking for a job?: I choose not to answer this question Are you interested in more education?: I choose not to answer this question Please select the resources that you would like help with: None Currently or been in a relationship where the following occur: I choose not to answer THRIVE Score: 0 AUDIT C Alcohol Use Questionnaire (AUDIT-C) 1. How often do you have a drink containing alcohol?: Never 3. How often do you have six or more drinks on one occasion?: Never Total Score: 0 NIESHA-7 AMB Questionnaire NIESHA-7 Date NIESHA - 7 assessed: 06/12/22 Feeling nervous, anxious, or on edge: 1 = Several days Not being able to stop or control worryin = Several days Worrying too much about different things: 1 = Several days Trouble relaxin = Not at all Being so restless that it is hard to sit still: 0 = Not at all Becoming easily annoyed or irritable: 1 = Several days Feeling afraid as if something awful might happen: 0 = Not at all Total NIESHA-7 score (0-4 normal; 5-9 mild; 10-14 moderate; 15-21 severe): 4 Source: Developed by Drs. Samson Trent, Iwona Gifford, Ike Pisano and colleagues, with an educational julio from [employer]. Review of Systems Const Denies body aches, Denies chills, Denies fever(s), Denies headache(s) and Denies poor appetite Eyes Reports no additional complaints ENT Denies dysphagia, Denies dizziness, Denies headache(s) and Denies odynophagia Card Denies chest pain, Denies syncope, Denies edema, Denies irregular heart rhythm, Denies lightheadedness and Denies dyspnea Resp Denies cough and Denies dyspnea GI Denies abdominal pain, Denies constipation, Denies dysphagia, Denies diarrhea, Denies nausea, Denies odynophagia and Denies vomiting Reports no additional complaints Musc Reports other (right hand pain and swelling) Skin/Breast Reports system reviewed and no additional complaints, except as documented Neuro Denies dizziness, Denies syncope and Denies headache(s) Psych Reports no additional complaints Physical exam (Primary Care) Vital Signs: Last Vital Signs Temp 97.3 F 02/09/25 13:36 Pulse 70 02/09/25 13:36 Resp 18 02/09/25 13:36 BP 106/62 02/09/25 13:36 Pulse Ox 98 02/09/25 13:36 Oxygen Delivery Method Room Air 02/09/25 13:36 BMI result Body Mass Index 26.2 Tobacco/Smoking Status: Tobacco use Status Tobacco use date assessed 02/09/25 02/09/25 13:37 Patient Tobacco Use Status Never used Tobacco 02/09/25 13:37 e-Cigarette/Vaping Use Never Used 02/09/25 13:37 PHQ-9: PHQ-9 Score PHQ-9: Total score 0 02/09/25 13:42 Thrive Assessment: Date of Thrive Assessment Date Thrive assessed 02/02/25 02/09/25 13:37 Currently or been in a relationship where the following occur: I choose not to answer Const General: cooperative, healthy appearing, comfortable and no acute distress Orientation/consciousness: patient oriented x3 HENMT Head: Yes normocephalic Ears: hearing grossly normal bilaterally General nose exam: Normal external nose present Eyes General: appearance normal, both eyes and all related structures Conjunctivae: conjunctivae normal Neck Neck: Yes full ROM and Yes no lymphadenopathy Resp Effort & Inspection: normal respiratory effort Auscultation: clear to auscultation bilaterally, no crackles, no rales, no rhonchi and no wheezes Cardio Rate: regular rate Rhythm: regular rhythm Skin General skin exam: no rashes or lesions noted Neuro General: patient oriented x3 Gait exam (Neuro): Normal gait present Extrem General: Yes normal to inspection, Yes full ROM and No edema Right upper extremity: Extremity exam: right hand Details: tenderness Location: of the dorsal hand, normal ROM of fingers, swelling Location: of the dorsal hand and ecchymosis Location: of the dorsal hand Psych Affect: normal affect Attitude: cooperative Insight: Good insight present (Psych) Judgement: Good judgement present (Psych) Coding Level of Care Code Est Pt Level 3 (58092) Diagnoses Contusion of right hand, subsequent encounter S60.221D Encounter type: subsequent encounter Time Spent (min) 33 Assessment & Plan Assessment & Plan (1) Contusion of hand, right: Code(s): S60.221A - Contusion of right hand, initial encounter Category: Medical Qualifiers: Encounter type: subsequent encounter Qualified Code(s): S60.221D - Contusion of right hand, subsequent encounter Plan: Status post work injury. Patient and got caught between 2 metal objects at work. Resulted in pain and swelling. She was seen in the emergency. X-ray completed showed no acute injuries. Patient hand continues to be edematous with the bruising over the dorsal region. Painful to palpation and slightly weaker than left. We will refer the patient to ortho (hand specialist) and the patient to only do duty until seen by the specialist. The patient should not lift any weight greater than 30 lbs until seen.
[2025-02-09 13:36] VITALS: BP 106/62; PULSE 70; RESP 18; TEMP 36.3; O2SAT 98; BMI 26.2
== END 2025-02-09 14:05 | disposition home or self-care (01) ==
LOC: HO.HMCH 13:25
PROVIDERS: PCP Internal Medicine
DX: S60.221D Contusion of right hand, subsequent encounter (principal)

== ENCOUNTER → 2025-02-09 13:24 | Outpatient (BNVA) | payer OTHER, SELFPAY | PROVIDERS: PCP Internal Medicine | DX: S60.221D Contusion of right hand, subsequent encounter (principal); X58.XXXD Exposure to other specified factors, subsequent encounter | CPT/HCPCS: 99212 ==

== ENCOUNTER 2025-04-01 10:11 | Emergency (ER) | payer OTHER, SELFPAY ==
[2025-04-01 10:19] VITALS: BP 124/81; PULSE 82; RESP 16; TEMP 36.6; O2SAT 100; BMI 24.6
--- NOTE | 2025-04-01 10:20 | ED.BACK ---
HPI - Back Pain/Injury General Chief Complaint: Back Pain/Injury Stated Complaint: Back Pain Time Seen by Provider: 04/01/25 11:01 Source: patient and family (Significant other at bedside) Mode of arrival: ambulatory History of Present Illness ED Provider: DONATO Jaffe HPI Narrative: 20-year-old female with medical history of chronic pain syndrome, patellofemoral syndrome, presents to ED due to lumbar back pain that began this morning after stretching in bed. Patient states she felt a popping sensation with a spasm of B/L lower back immediately after the stretch. Patient did not take any medication for pain after the incident occured. 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 Patients states yesterday she was unloading a [employer] truck and was pushing herself physically to unload the truck quickly without injury, fall or trauma. Denies radicular symptoms, saddle parasthesia, bowel/bladder incontinence, history of IVDU history of malignancy, fevers, weight loss, chest pain, SOB, abdominal pain, nausea, vomiting, urinary symptoms. Related Data Home Medications ?Medication ?Instructions ?Recorded ?Confirmed ibuprofen 800 mg tablet 800 mg PO Q8H PRN 09/14/23 02/09/25 Previous Rx's ?Medication ?Instructions ?Recorded linaclotide 72 mcg capsule 72 mcg PO QAM #30 caps 11/20/24 (Linzess) acetaminophen 500 mg tablet 1,000 mg (2 x 500 mg) PO QID PRN 01/12/25 (Tylenol Extra Strength) pain #30 tabs ibuprofen 600 mg tablet 600 mg PO Q6H PRN pain #30 tabs 01/12/25 cyclobenzaprine 5 mg tablet 5 mg PO BID PRN muscle spasm #10 04/01/25 tabs Allergies Allergy/AdvReac Type Severity Reaction Status Date / Time No Known Allergies Allergy Verified 04/01/25 10:21 Review of Systems Review of Systems: Yes all other systems are reviewed and are negative PMFSH Past Medical History Attestation statement: The following information was validated with the patient. Source: old records reviewed, obtained from family (Significant other at bedside) and nursing notes reviewed Medical History Abnormal prominence of scapula control counseling Immunization due Rash Counseling for initiation of control method Folliculitis barbae Knee pain, bilateral Depression screening negative Tinea manuum Physical exam Hospital discharge follow-up Hip pain, bilateral Chronic pain syndrome Osteoarthritis of knees, bilateral Ear infection Surgical History No pertinent past surgical history Family History Family History Father Fibromyalgia Cancer Nerve damage Depression Anxiety Social History Social History Housing: Apartment Alcohol intake: never Patient Tobacco Use Status: Never used Tobacco e-Cigarette/Vaping Use: Never Used Second Hand Smoke Exposure: Yes Advance Directives: No Advance Directives Information Provided: No Do you have a plan to hurt others: No Plan service: No Current occupational status: employed and student 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 HEENT: ?NC, AT. MMM. EOMI, clear conjunctiva, oropharynx clear. NECK: ?Supple without lymphadenopathy.? No stiffness or restricted ROM. HEART:? Normal rate and regular rhythm, normal S1/S2, no m/r/g LUNGS:? CTAB, moving air well. No crackles or wheezes are heard. ABDOMEN: ?Soft, nontender, nondistended with good bowel sounds heard. BACK: No CVAT, no obvious deformity. TTP of B/L paraspinal muscles, very mild midline tenderness without bony step offs, or anatomical abnormalities palpated or observed, ROM is fully intact, patient is able to forward bend in flexion, arch in extension, and perform lateral bending without significant pain or unsteadiness. Patient is able to ambulate without pain, no numbness or tingling of lower extremities, no overlying skin changes, ecchymosis or rashes. EXTREMITIES: ?Without cyanosis, clubbing or edema. NEUROLOGICAL: ?Grossly nonfocal. Alert and oriented, moving all 4 extremities. Observed to ambulate with normal gait. Skin: ?Warm and dry without any rash. Course Course Course Narrative: This is a Rapid Medical Exam performed in triage by Sherly Lindsay PA-C. Full HPI, ROS and PE to be performed by primary ED provider. 20 yo F presenting to the ED c/o low back pain x this AM after twisting in bed wrong. Also reports rib pain. denies injury/fall, incontinence/retention PE: +b/l lower rib ttp. ambulting with steady gait Plan: pain control Medical Decision Making Medical Decision Making MDM Narrative: 20-year-old female with medical history of chronic pain syndrome, patellofemoral syndrome, presents to ED due to lumbar back pain that began this morning after stretching in bed. Patient states she felt a popping sensation with a spasm of B/L lower back immediately after the stretch. Increased physical activity this week as she works at [employer] and has been unpacking [employer] Sunday trucks yesterday. VS on initial observation-BP 124/81, pulse rate of 82, respiratory rate of 16, afebrile with oral temp of 98?, O2 saturation 100% on room air. On physical exam patient is alert and oriented, very well-appearing, nontoxic, Lumbar back with TTP of B/L lumbar paraspinal muscles, very mild midline tenderness without bony step offs, or anatomical abnormalities palpated or observed, ROM is fully intact, patient is able to forward bend in flexion, arch in extension, and perform lateral bending without significant pain or unsteadiness. Patient is able to ambulate without pain, no numbness or tingling of lower extremities, no overlying skin changes, ecchymosis or rashes. Patient with pain of the muscles of the lumbar back after stretching in bed today, no red flag symptoms such as fevers, weight loss, history of IVDU, injury/trauma, saddle paresthesias, bowel/bladder incontinence. Full ROM intact as patient is able to perform flexion and bend towards the toes, extension, and lateral bending without significant pain or unsteadiness. No indication for imaging today as her symptoms are most consistent with lumbar back strain- Less likely SEA, discitis, cauda equina, or fracture. Patient medicated with 30 mg IM Toradol, 975 p.o. Tylenol, 5 mg Flexeril. Patient will be discharged home with 5 day course of Flexeril for muscle spasm and instruction to take 500 mg of Tylenol, 400 mg of ibuprofen every 6 hours, heat pad, gentle stretching, and follow up with her [facility] PCP who she is established with. Patient feels well enough to go home for self care. Patient is in agreement with the plan. Differential Diagnosis Differential Diagnoses: The differential diagnosis associated with the presentation includes Cauda Equina SEA Discitis Lumbar fracture Lumbar back strain Admission/Observation Consideration of admission/observation: Escalation of care including admission/observation considered Independent Historian Clinical information obtained from an independent historian. History obtained from or confirmed by: Spouse (Significant other at bedside) External Record Review External record reviewed: Inpatient record, Office record, Outpatient record and Primary care record Chronic Conditions Patient?s care impacted by: Other (Chronic pain syndrome, patellofemoral syndrome, insomnia,) Discharge Plan Discharge Clinical Impression: Lumbar strain Patient Disposition: Home, Self-Care Instructions: Low Back Strain (ED), P.R.I.C.E. Treatment (ED) Additional Instructions: You were evaluated in the emergency department for lumbar back pain. Your physical exam was reassuring as your range of motion was fully intact, without any abnormalities palpated on your spine, your symptoms are most consistent with a lumbar back strain. You are being discharged with a 5 day course of Flexeril which is a muscle relaxer for muscle spasm of lumbar back, this medication can make you drowsy so do not take it if you were going to drive or operate heavy machinery. To manage pain at home you can take 500 mg of Tylenol, and 400 mg of ibuprofen every 6 hours consistently until your symptoms began to improve. Additionally, I recommend using heating packs, gentle stretching to relieve your pain. The worst thing you can do with this type of pain is stay immobile as this can cause worsening muscle tightness and spasm. Please follow up with your primary care doctor to ensure resolution of your symptoms, you may need physical therapy as at times lumbar back pain can last 4-6 weeks, and physical therapy can be helpful. Please return to the emergency department if you experience fevers, numbness and tingling of your inner thighs and/or genital area, bowel/bladder incontinence, worsening back pain, chest pain, shortness of breath, nausea, vomiting, abdominal pain or any new/worsening/concerning symptoms. Prescriptions: New cyclobenzaprine 5 mg tablet 5 mg PO BID PRN (Reason: muscle spasm) Qty: 10 0RF No Action ibuprofen 600 mg tablet 600 mg PO Q6H PRN (Reason: pain) Qty: 30 0RF acetaminophen [Tylenol Extra Strength] 500 mg tablet 1,000 mg PO QID PRN (Reason: pain) Qty: 30 0RF ibuprofen 800 mg tablet 800 mg PO Q8H PRN Linzess 72 mcg capsule 72 mcg PO QAM Qty: 30 6RF Stand Alone Forms: Work/School Release Print Language: Thai
[2025-04-01 11:43] VITALS: BP 105/61; PULSE 84; RESP 18; TEMP 36.7; O2SAT 100
[2025-04-01 11:56] VITALS: BP 105/61; PULSE 84; RESP 18; TEMP 36.7; O2SAT 100
== END 2025-04-01 11:56 | disposition home or self-care (01) ==
PROVIDERS: Emergency Provider Emergency Medicine; PCP Internal Medicine
DX: S39.012A Strain of muscle, fascia and tendon of lower back, initial encounter (principal); X58.XXXA Exposure to other specified factors, initial encounter; Y93.9 Activity, unspecified; Y92.003 Bedroom of unspecified non-institutional (private) residence as the place of occurrence of the external cause
CPT/HCPCS: 96372; 99283; 99284; J1885

== ENCOUNTER 2025-04-17 13:27 | Outpatient (AMB) | payer OTHER, SELFPAY ==
--- NOTE | 2025-04-17 13:32 | MHC.PC.OV ---
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 Accompanied by: Self / Same As Patient Allergies No Known Allergies Allergy (Verified 04/20/25 13:54) Medication List - Last Reconciled 04/17/25 by MAIN Foster acetaminophen (Tylenol Extra Strength) 1,000 mg (2 x 500 mg) PO QID PRN cyclobenzaprine 5 mg PO BID PRN ibuprofen 600 mg PO Q6H PRN ibuprofen 800 mg PO Q8H PRN linaclotide (Linzess) 72 mcg PO QAM Tobacco use date assessed: 04/17/25 Dental Screening Dental Screen Date: 04/17/25 Did you have a dental visit in the last 12 months?: No Did you have a dental problem in the last 6 months where you did not have access to dental care?: No Was dental information given to patient?: No HPI right hand contusion HPI Details The patient is a 19-year-old female presenting for evaluation for work-related injury to right hand. The patient was seen in [facility] emergency room on 01/26/2025. There an x-ray of her hand was completed with no acute findings. It was reported that her hand was caught between a pallet and a metal pole. It was also reported that she was having pain with flexion and extension in the fingers of the right hand. Reports that this happened 3 hours into her shift; she was not sure if the need medical attention or not. The dorsal portion of her hand continues to be sensitive to touch, severe pain or edema. Patient reports that her right hand feels bumpy, no weakness, no decreased range of motion. The patient has upcoming appointment with Orthopedics on 04/20/2050. [facility] Medical History Abnormal prominence of scapula control counseling Immunization due Rash Counseling for initiation of control method Folliculitis barbae Knee pain, bilateral Depression screening negative Tinea manuum Physical exam Hospital discharge follow-up Hip pain, bilateral Chronic pain syndrome Osteoarthritis of knees, bilateral Ear infection Surgical History No pertinent past surgical history Family History Father Fibromyalgia Cancer Nerve damage Depression Anxiety Social History Housing: Apartment Alcohol intake: never Patient Tobacco Use Status: Never used Tobacco e-Cigarette/Vaping Use: Never Used Second Hand Smoke Exposure: Yes service: No Current occupational status: employed and student 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, 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 Current occupational exposures/hazards: No Cognitive needs: No Hearing needs: No Vision needs: No Female Reproductive History Menstrual Age of Menarche: 10 Questionnaire Thrive Questionnaire Date Thrive assessed: 04/17/25 I am a: Patient What is your living situation today?: I choose not to answer this question Within the past 12 months, did the food you bought not last and you didn't have the money to get more?: I choose not to answer this question Within the past 12 months, did you worry whether your food would run out before you got money to buy more?: I choose not to answer this question Do you have trouble paying for medicines?: I choose not to answer this question Do you have trouble getting transportation to medical appointments?: I choose not to answer this question Do you have trouble paying your heating and electricity bill?: I choose not to answer this question Do you have trouble taking care of your child, family member or friend?: I choose not to answer this question Do you have trouble with day-to-day activities such as bathing, preparing meals, shopping, managing finances, etc.?: I choose not to answer this question Are you currently unemployed and looking for a job?: I choose not to answer this question Are you interested in more education?: I choose not to answer this question Please select the resources that you would like help with: None Currently or been in a relationship where the following occur: I choose not to answer THRIVE Score: 0 AUDIT C Alcohol Use Questionnaire (AUDIT-C) 1. How often do you have a drink containing alcohol?: Monthly or less 2. How many drinks containing alcohol do you have on a typical day when you are drinking?: 1 or 2 3. How often do you have six or more drinks on one occasion?: Never Total Score: 1 NIESHA-7 AMB Questionnaire NIESHA-7 Date NIESHA - 7 assessed: 04/17/25 Feeling nervous, anxious, or on edge: 2 = More than half the days Not being able to stop or control worryin = More than half the days Worrying too much about different things: 2 = More than half the days Trouble relaxin = More than half the days Being so restless that it is hard to sit still: 2 = More than half the days Becoming easily annoyed or irritable: 2 = More than half the days Feeling afraid as if something awful might happen: 0 = Not at all Total NIESHA-7 score (0-4 normal; 5-9 mild; 10-14 moderate; 15-21 severe): 12 Source: Developed by Drs. Samson Trent, Iwona Gifford, Ike Pisano and colleagues, with an educational julio from [employer]. Review of Systems Narrative Review of Systems - General: Reports pain that has been - Musculoskeletal: Reports intermittent back and leg pain flare-ups. Const Denies body aches, Denies chills, Denies fever(s), Denies headache(s) and Denies poor appetite Eyes Reports no additional complaints ENT Denies dysphagia, Denies dizziness, Denies headache(s) and Denies odynophagia Card Denies chest pain, Denies syncope, Denies edema, Denies irregular heart rhythm, Denies lightheadedness and Denies dyspnea Resp Denies cough and Denies dyspnea GI Denies abdominal pain, Denies constipation, Denies dysphagia, Denies diarrhea, Denies nausea, Denies odynophagia and Denies vomiting Reports no additional complaints Musc Reports other (right hand pain and swelling) Skin/Breast Reports system reviewed and no additional complaints, except as documented Neuro Denies dizziness, Denies syncope and Denies headache(s) Psych Reports no additional complaints Physical exam (Primary Care) Vital Signs: Last Vital Signs Pulse 83 04/17/25 13:33 Resp 18 04/17/25 13:33 BP 110/72 04/17/25 13:33 Pulse Ox 96 04/17/25 13:33 Oxygen Delivery Method Room Air 04/17/25 13:33 BMI result Body Mass Index 25.7 Tobacco/Smoking Status: Tobacco use Status Tobacco use date assessed 04/17/25 04/17/25 13:41 Patient Tobacco Use Status Never used Tobacco 04/17/25 13:41 e-Cigarette/Vaping Use Never Used 04/17/25 13:41 Thrive Assessment: Date of Thrive Assessment Date Thrive assessed 04/17/25 04/17/25 13:41 Currently or been in a relationship where the following occur: I choose not to answer Narrative Physical Exam - Head: Inspection revealed a reddish-purple area. Const General: cooperative, healthy appearing, comfortable and no acute distress Orientation/consciousness: patient oriented x3 HENMT Head: Yes normocephalic Ears: hearing grossly normal bilaterally General nose exam: Normal external nose present Eyes General: appearance normal, both eyes and all related structures Conjunctivae: conjunctivae normal Neck Neck: Yes full ROM and Yes no lymphadenopathy Resp Effort & Inspection: normal respiratory effort Auscultation: clear to auscultation bilaterally, no crackles, no rales, no rhonchi and no wheezes Cardio Rate: regular rate Rhythm: regular rhythm Heart sounds: S1 normal heart sound present and S2 normal heart sound present Skin General skin exam: no rashes or lesions noted Neuro General: patient oriented x3 Gait exam (Neuro): Normal gait present Extrem General: Yes normal to inspection, Yes full ROM and No edema Right upper extremity: Extremity exam: right hand Details: tenderness Location: of the dorsal hand, normal ROM of fingers, swelling Location: of the dorsal hand and ecchymosis Location: of the dorsal hand Psych Affect: normal affect Attitude: cooperative Insight: Good insight present (Psych) Judgement: Good judgement present (Psych) Coding Level of Care Code Est Pt Level 3 (16090) Diagnoses Contusion of right hand, subsequent encounter S60.221D Encounter type: subsequent encounter Time Spent (min) 31 Assessment & Plan Assessment & Plan (1) Contusion of hand, right: Code(s): S60.221A - Contusion of right hand, initial encounter Category: Medical Qualifiers: Encounter type: subsequent encounter Qualified Code(s): S60.221D - Contusion of right hand, subsequent encounter Plan: The patient reports the condition is improving and now feels only slightly more tender compared to the unaffected side. Reports sensitivity to the dorsal aspect of hand, sustains a burning sensation with light touch, even by her bed sheets. I advised her to proceed with her scheduled orthopedic appointment on the for further assessment. No new intervention added today. Continue modified activity and OTC pain medications as needed.
[2025-04-17 13:33] VITALS: BP 110/72; PULSE 83; RESP 18; O2SAT 96; BMI 25.7
== END 2025-04-17 13:57 | disposition home or self-care (01) ==
LOC: HO.HMCH 13:28
PROVIDERS: PCP Internal Medicine
DX: S60.221D Contusion of right hand, subsequent encounter (principal)

== ENCOUNTER → 2025-04-17 13:27 | Outpatient (BNVA) | payer OTHER, SELFPAY | PROVIDERS: PCP Internal Medicine | DX: S60.221D Contusion of right hand, subsequent encounter (principal) | CPT/HCPCS: 96127; 99212 ==

== ENCOUNTER 2025-04-20 13:29 | Outpatient (REF) | payer OTHER, SELFPAY ==
--- NOTE | ~2025-04-20 | XR_ITS ---
EXAMINATION: XR HAND, RIGHT CLINICAL INFORMATION: M79.641 - Pain in right hand COMPARISON: None available. TECHNIQUE: PA, lateral, and oblique views of the right hand. FINDINGS: No fracture. Alignment is anatomic. Joint spaces are maintained. No erosions or soft tissue calcifications. XR/XR hand RT min 3V IMPRESSION: No acute findings Electronically signed by: Lincoln Oscar MD 04/21/2025 01:46 PM EST
== END 2025-04-20 13:30 | disposition home or self-care (01) ==
LOC: HO.HOSX 13:29
PROVIDERS: PCP Internal Medicine
DX: S67.21XA Crushing injury of right hand, initial encounter (principal); W22.8XXA Striking against or struck by other objects, initial encounter; Y93.89 Activity, other specified; Y92.9 Unspecified place or not applicable; Y99.0 Civilian activity done for income or pay
CPT/HCPCS: 73130

== ENCOUNTER 2025-04-20 13:29 | Outpatient (AMB) | payer OTHER, SELFPAY ==
--- NOTE | 2025-04-20 13:40 | A.OFFVIS_ITS ---
Vital Signs 04/20/25 13:41 Height 5 ft 7 in Weight 164 lb BMI 25.7 Intake Visit Reasons: New prob-Contusion of right hand DOI 01/26/25 Intake Note: Angelica is a 20 year old 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 female who works at [employer], presents today for a New Problem Visit for evaluation of a Right Hand Contusion, Workers Compensation injury DOI: 01/26/25. Patient presented to [facility] ED on 01/26/25 reporting she caught her hand between a pallet kristi and a metal pole. States xrays were taken and her hand was wrapped with a MACK wrap, she was advise to ice her hand and referred to orthopedics from from PCP. Today patient states she feel a hard spot with bump on dorsum aspect of hand, she has stiffness mostly in her 4th digits and in her joints and pain and tingling sensation when something rubs against it. Denies numbness or tingling. Allergies No Known Allergies Allergy (Verified 04/20/25 13:54) HPI HPI New prob-Contusion of right hand DOI 01/26/25: Details: Angelica is a 20 year old 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 female who works at [employer], presents today for a New Problem Visit for evaluation of a Right Hand Contusion, Workers Compensation injury DOI: 01/26/25. Patient presented to [facility] ED on 01/26/25 reporting she caught her hand between a pallet kristi and a metal pole. States xrays were taken and her hand was wrapped with a MACK wrap, she was advise to ice her hand and referred to orthopedics from from PCP. Today patient states she feel a hard spot with bump on dorsum aspect of hand, she has stiffness mostly in her 4th digits and in her joints and pain and tingling sensation when something rubs against it. Patient reports that occasionally the pain does shoot up to the tip of the finger, and more rarely, up to the shoulder and neck region. Denies numbness or tingling. [facility] Medical History Abnormal prominence of scapula control counseling Immunization due Rash Counseling for initiation of control method Folliculitis barbae Knee pain, bilateral Depression screening negative Tinea manuum Physical exam Hospital discharge follow-up Hip pain, bilateral Chronic pain syndrome Osteoarthritis of knees, bilateral Ear infection Surgical History No pertinent past surgical history Family History Father Fibromyalgia Cancer Nerve damage Depression Anxiety Social History Housing: Apartment Alcohol intake: never Patient Tobacco Use Status: Never used Tobacco e-Cigarette/Vaping Use: Never Used Second Hand Smoke Exposure: Yes service: No Current occupational status: employed and student 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 Neuro: Normal sensation of the tips of all digits of the right hand at this time Vascular: Cap refill brisk Pain: Mild tenderness to palpation about dorsal aspect of right 4th metacarpal shaft ROM: Patient is able to make a closed fist and extend all digits of the right hand fully and without difficulty Skin: No lacerations or abrasions. General: Mild ecchymosis over area of pain on 4th metacarpal shaft No erythema, or evidence of infection. Psych: Appears grossly normal Affect normal Attitude cooperative Results Reviewed Results Reviewed: X-rays obtained in the office today and independently reviewed by me, Nilesh Thompson PA-C, demonstrate no fracture or acute bony abnormality of the right hand. Assessment & Plan Assessment & Plan (1) Crushing injury of right hand excluding fingers: Code(s): S67.21XA - Crushing injury of right hand, initial encounter Category: Medical Plan 1. Crushing injury of right hand With no fracture Date of injury 01/26/2025 Patient is educated about this condition Patient is educated about the typical recovery course At this time, patient is educated that unfortunately, soft tissue crush injuries can result in significant symptomatic burden, and often take a very long time to heal, as these injuries do often lead to significant damage I do feel that there was likely some form of nerve injury in the right hand, particularly the common digital nerve or radial digital nerve of the right ring finger, however as there was no laceration, and the patient does have normal sensation distal to this injury, I do not feel that there was a laceration or complete nerve rupture Therefore, there is no acute surgical or operative intervention indicated at this time Patient is referred to occupational therapy for range of motion and strengthening of the right hand Patient understands this and is amenable to this plan Follow-up as needed with any acute concerns Orders: Orders XR hand RT min 3V Today M79.641 - Pain in right hand OT Evaluation and Treatment Today S67.21XA - Crushing injury of right hand, initial encounter Coding Level of Care Code New Pt Level 3 (02719) Diagnoses Crushing injury of right hand excluding fingers S67.21XA
[2025-04-20 13:41] VITALS: BMI 25.7
== END 2025-04-20 14:13 | disposition home or self-care (01) ==
LOC: HO.HOS 13:30
PROVIDERS: PCP Internal Medicine
DX: S67.21XA Crushing injury of right hand, initial encounter (principal)
CPT/HCPCS: 99213

== ENCOUNTER → 2025-04-20 13:32 | Outpatient (BNV) | payer OTHER, SELFPAY | PROVIDERS: PCP Internal Medicine; Visit Provider Radiology Diagnostic Ultrasound | DX: M79.641 Pain in right hand (principal) | CPT/HCPCS: 73130 ==